=== PATIENT | female | born 1935 | race Two or more races ===

== ENCOUNTER 2024-08-30 22:33 | Inpatient (IN) | payer MEDICARE, OTHER ==
[~2024-08-30] VITALS: Ht 149.9 cm; Wt 69.3 kg
[2024-08-30] MEDS: cloNIDine HCL 0.1 MG TAB PO ONE (00:04)
[~2024-08-30 22:33] MED LIST: ALLO100T PO; AMLO1TAB23 PO; APIX2.5T PO; ATOR10TA52 PO; FURO20TA4 PO; LEVO-177 PO; METO-289 PO; POTA-228 PO
--- NOTE | 2024-08-30 22:56 | ED.PDOC ---
History of Present Illness HPI Comments 88-year-old female who came to ER via EMS were high blood pressure. Patient has history of hypertension, congestive heart failure and AFib. Patient has good compliance to her medications. States earlier today, she started having dizziness, lightheadedness, and headaches. Noted that her blood pressure was elevated, SBP 180-200, so she took clonidine which offered slight relief. She denies any nausea or vomiting. Denies any acute chest pains. Upon arrival blood pressure was 177/127 mm Hg Chief Complaint: High blood pressure Time Seen by MD: 22:56 Reviewed Notes: Nurses Notes Allergies: Coded Allergies: NO KNOWN ALLERGIES (Unverified , 08/30/24) Information Source: Patient Mode of Arrival: EMS Severity: Moderate Timing: Hours Duration: Since onset Prehospital treatment: Treatment Past Medical History PAST MEDICAL HISTORY: AFIB, CHF, HTN Surgical History: Denies all surgeries SALES TEACHER History: Denies all SALES TEACHER Hx Family History Family History: Reviewed,noncontributory to illness Social History Smoker: Non-Smoker Alcohol: Denies ETOH Use Drugs: Denies Drug Use Lives In: Home Constitutional: denies: chills, diaphoresis, fatigue, fever, malaise, sweats, weakness, others EENTM: denies: blurred vision, double vision, ear bleeding, ear discharge, ear drainage, ear pain, ear ringing, eye pain, eye redness, hearing loss, mouth pain, mouth swelling, nasal discharge, nose bleeding, nose congestion, nose pain, photophobia, tearing, throat pain, throat swelling, voice changes, others Respiratory: denies: cough, hemoptysis, orthopnea, SOB at rest, shortness of breath, SOB with excertion, stridor, wheezing, others Cardiovascular: denies: chest pain, dizzy spells, diaphoresis, Dyspnea on exertion, edema, irregular heart beat, left arm pain, lightheadedness, palpitations, PND, syncope, others Gastrointestinal: denies: abdomen distended, abdominal pain, blood streaked bowels, constipated, diarrhea, dysphagia, difficulty swallowing, hematemesis, melena, nausea, poor appetite, poor fluid intake, rectal bleeding, rectal pain, vomiting, others Genitourinary: denies: abnormal vagina bleeding, burning, dyspareunia, dysuria, flank pain, frequency, hematuria, incontinence, pain, , vagina discharge, urgency, others Neurological: reports: dizziness, headache; denies: fainting, left sided numbness, left sided weakness, numbness, paresthesia, pre-existing deficit, right sided numbness, right sided weakness, seizure, speech problems, tingling, tremors, weakness, others Musculoskeletal: denies: back pain, gout, joint pain, joint swelling, muscle pain, muscle stiffness, neck pain, others Integumetry: denies: bruises, change in color, change in hair/nails, dryness, laceration, lesions, lumps, rash, wounds, others Allergic/Immunocompromised: denies: Difficulty Healing, Frequent Infections, Hives, Itching, others Hematologic/Lymphatic: denies: anemia, blood clots, easy bleeding, easy bruising, swollen glands, others Endocrine: denies: excessive hunger, excessive sweating, excessive thirst, excessive urination, flushing, intolerance to cold, intolerance to heat, unexplained weight gain, unexplained weight loss, others Psychiatric: denies: anxiety, bipolar disorder, depression, hopeless, panic disorder, schizophrenia, sleepless, suicidal, others Physical Exam General Appearance: No Apparent Distress, Normal HEENT: Normal ENT Inspection, Pharynx Normal, TMs Normal Neck: Full Range of Motion, Non-Tender, Normal, Normal Inspection Respiratory: Chest Non-Tender, Lungs Clear, No Accessory Muscle Use, No Respiratory Distress, Normal Breath Sounds Cardiovascular: No Edema, No JVD, No Murmur, No Gallop, Normal Peripheral Pulses, Regular Rate/Rhythm Breast Exam: Deferred Gastrointestinal: No Organomegaly, Non Tender, No Pulsatile Mass, Normal Bowel Sounds, Soft Genitalia: Deferred Pelvic: Deferred Rectal: Deferred Extremities: No calf tenderness, Normal capillary refill, Normal inspection, Normal range of motion, Non-tender, No pedal edema Musculoskeletal : Apperance: Normal Neurologic: Alert, budget accountant II-XII nml as Tested, No Motor Deficits, Normal Affect, Normal Mood, No Sensory Deficits Cerebellar Function: Normal Reflexes: Normal Skin: Dry, Normal Color, Warm Lymphatic: No Adenopathy Was a procedure done? Was a procedure done?: No EKG EKG : Cardiac Rhythm: Afib Differential Dx Considerations may include: Hypertensive urgency, anxiety, electrolyte imbalance X-Ray, Labs, Meds, VS Vital Signs Date Time Temp Pulse Resp B/P (MAP) Pulse Ox O2 Delivery O2 Flow Rate FiO2 08/31/24 00:05 62 17 133/70 (91) 94 08/30/24 22:35 98.0 95 24 177/127 (144) 95 98.0 08/30/24 00:04 133/70 Lab Test 08/31/24 00:10 08/30/24 23:00 Range/Units Troponin I High Sensitivity Pending 84 *H </=34 ng/L White Blood Count 5.5 4.4-10.8 10^3/uL Red Blood Count 4.82 4.0-5.20 10^6/uL Hemoglobin 15.8 12.2-16.2 g/dL Hematocrit 47.4 H 36.0-46.0 % Mean Corpuscular Volume 98.5 80.0-100.0 fL Mean Corpuscular Hemoglobin 32.7 H 28.0-32.0 pg Mean Corpuscular Hemoglobin Concent 33.2 32.0-36.0 g/dL Red Cell Distribution Width 15.2 H 11.8-14.3 % Platelet Count 166 140-450 10^3/uL Mean Platelet Volume 8.0 6.9-10.8 fL Neutrophils (%) (Auto) 63.9 37.0-80.0 % Lymphocytes (%) (Auto) 24.5 10.0-50.0 % Monocytes (%) (Auto) 6.4 0.0-12.0 % Eosinophils (%) (Auto) 4.2 0.0-7.0 % Basophils (%) (Auto) 1.0 0.0-2.0 % Neutrophils # (Auto) 3.5 1.6-8.6 10 ^3/uL Lymphocytes # (Auto) 1.3 0.4-5.4 10 ^3/uL Monocytes # (Auto) 0.3 0-1.3 10 ^3/uL Eosinophils # (Auto) 0.2 0-0.8 10 ^3/uL Basophils # (Auto) 0.1 0-0.2 10 ^3/uL Nucleated Red Blood Cells 0.1 % Sodium Level 132 L 136-145 mmol/L Potassium Level 4.5 3.5-5.1 mmol/L Chloride Level 96 L 98-107 mmol/L Carbon Dioxide Level 30 20-31 mmol/L Anion Gap 6 5-15 Blood Urea Nitrogen 22 9-23 mg/dL Creatinine 1.43 H 0.550-1.02 mg/dL Glomerular Filtration Rate Calc 36 >90 mL/min BUN/Creatinine Ratio 15.4 10.0-20.0 Serum Glucose 121 H 74-106 mg/dL Calcium Level 10.4 8.7-10.4 mg/dL Total Bilirubin 1.6 H 0.2-1.0 mg/dL Aspartate Amino Transferase (AST) 113 H 13-40 U/L Alanine Aminotransferase (ALT) 112 H 7-40 U/L Alkaline Phosphatase 91 46-116 U/L Total Protein 6.6 5.7-8.2 g/dL Albumin 4.4 3.2-4.8 g/dL Time of 1ST Reevaluation: 22:45 Reevaluation 1ST: Unchanged Patient Education/Counseling: Diagnosis, Treatment Family Education/Counseling: No Family Present Departure 1 Departure Time of Disposition: 00:19 Impression: Primary Impression: Atrial fibrillation Additional Impression: Intermediate coronary syndrome Disposition: ADMITTED INPATIENT Admit to: [facility] Condition: Guarded Discharged With: Self Critical Care Note Critical Care Time?: Yes (35 min-critical care time only) Critical care comment: Total critical care time: Approximately 36 minutes Due to a high probability of clinically significant, life threatening deterioration, the patient required my highest level of preparedness to intervene emergently and I personally spent this critical care time directly and personally managing the patient. This critical care time included obtaining a history; examining the patient; pulse oximetry; ordering and review of studies; arranging urgent treatment with development of a management plan; evaluation of patient's response to treatment; frequent reassessment; and, discussions with other providers. This critical care time was performed to assess and manage the high probability of imminent, life-threatening deterioration that could result in multi-organ failure. It was exclusive of separately billable procedures and treating other patients. Stability Stability form required: No Heart Score Heart Score: Heart Score Response (Comments) Value History N/A 0 EKG N/A 0 Age N/A 0 Risk Factors N/A 0 Troponin N/A 0 Total 0 I personally scribed for SHALONDA RIOS MD ([email or web address]) on 08/30/24 at 22:56. Electronically submitted by Reginaldo Davidson ([facility]). SHALONDA RIOS MD Aug 30, 2024 22:56
[2024-08-30 23:00] VITALS: PULSE 73; RESP 13; O2SAT 98
[2024-08-30 23:19] LABS: Basophils # (auto) 0.1 10 ^3/uL (0-0.2); Eosinophils # (auto) 0.2 10 ^3/uL (0-0.8); Eosinophils % (auto) 4.2 % (0.0-7.0); Hematocrit 47.4 % (36.0-46.0); Hemoglobin 15.8 g/dL (12.2-16.2); Lymphocytes # (auto) 1.3 10 ^3/uL (0.4-5.4); Lymphocytes % (auto) 24.5 % (10.0-50.0); Mean Corpuscular Hemoglobin 32.7 pg (28.0-32.0); Mean Corpuscular Hgb Conc. 33.2 g/dL (32.0-36.0); Mean Corpuscular Volume 98.5 fL (80.0-100.0); Monocytes # (auto) 0.3 10 ^3/uL (0-1.3); Monocytes % (auto) 6.4 % (0.0-12.0); Neutrophils # (auto) 3.5 10 ^3/uL (1.6-8.6); Neutrophils % (auto) 63.9 % (37.0-80.0); Nucleated Red Blood Cells % 0.1 %; Platelet Count (auto) 166 10^3/uL (140-450); Red Blood Cells 4.82 10^6/uL (4.0-5.20); Red Cell Distribution Width 15.2 % (11.8-14.3); White Blood Cell 5.5 10^3/uL (4.4-10.8)
[2024-08-30 23:37] LABS: Alanine Aminotransferase 112 U/L (7-40); Albumin 4.4 g/dL (3.2-4.8); Alkaline Phosphatase 91 U/L (46-116); Anion Gap 6 (5-15); Aspartate Aminotransferase 113 U/L (13-40); BUN/Creatinine Ratio 15.4 (10.0-20.0); Blood Urea Nitrogen 22 mg/dL (9-23); Calcium 10.4 mg/dL (8.7-10.4); Carbon Dioxide 30 mmol/L (20-31); Chloride 96 mmol/L (98-107); Glucose 121 mg/dL (74-106); Potassium 4.5 mmol/L (3.5-5.1); Sodium 132 mmol/L (136-145); Total Protein 6.6 g/dL (5.7-8.2)
[2024-08-30 23:38] LABS: Bilirubin, Total 1.6 mg/dL (0.2-1.0)
[2024-08-31] VITALS (8 sets, daily range): BP systolic 109–128; BP diastolic 55–64; PULSE 65–70; RESP 17–19; TEMP 97.1–98.3; O2SAT 97–100
[2024-08-31] MEDS ORDERED: NITROGLYCERIN 0.4 MG SL TAB SL PRN (00:45)
[2024-08-31] MEDS ORDERED: ACETAMINOPHEN 325 MG TAB PO PRN (00:45)
[2024-08-31] MEDS ORDERED: MORPHINE SULFATE 4 MG/ML SYR/VIAL IV PRN (00:45)
[2024-08-31] MEDS ORDERED: ZOLPIDEM TARTRATE 5 MG TAB PO PRN (00:45)
[2024-08-31] MEDS ORDERED: ONDANSETRON HCL 4 MG/2 ML VIAL IV PRN (00:45)
--- NOTE | 2024-08-31 01:05 | DVHHP2 ---
History of Present Illness Reason for Visit: Hypertension History of Present Illness 88-year-old female with past medical history of hypertension AFib and congestive heart failure comes to the ED with complaints of dizziness elevated blood pressure patient does have a history of AFib on initial evaluation in the ED patient was stated to have a controlled rate was also noted to have elevated troponins as well as elevated BUN and creatinine patient was suggested for admission for further evaluation and management and inpatient setting Cardiovascular: AFIB, CAD, HTN Review of Systems Constitutional: Yes: Weakness; No: Fever, Chills, Sweats, Malaise, Other Eyes: No: Pain, Vision change, Conjunctivae inflammation, Eyelid inflammation, Other, Redness ENT: No: Ear pain, Ear discharge, Nose pain, Nose discharge, Nose congestion, Mouth pain, Mouth swelling, Throat pain, Throat swelling, Other Respiratory: No: Cough, Dry, Shortness of breath, SOB with excertion, Wheezing, Hemoptysis, Pleuritic Pain, Sputum, Wheezing, Other Cardiovascular: Palpitations; No: Chest Pain, Orthopnea, Paroxysmal Noc. Dyspnea, Edema, Lt Headedness, Other Gastrointestinal: No: Nausea, Vomiting, Abdominal Pain, Diarrhea, Constipation, Melena, Hematochezia, Other Genitourinary: No Dysuria, No Frequency, No Incontinence, No Hematuria, No Retention, No Other Musculoskeletal: No: other, neck pain, shoulder pain, arm pain, back pain, hand pain, leg pain, foot pain Skin: No: Rash, Lesions, Jaundice, Bruising, Other Neurological: Weakness; No: Numbness, Incoordination, Change in speech, Confusion, Seizures, Other Allergies: Coded Allergies: NO KNOWN ALLERGIES (Unverified , 08/30/24) Medications Current Medications Medications Dose Ordered Sig/Consuelo Route Start Time Stop Time Status Last Admin Dose Admin Clonidine HCl 0.1 mg TID PO 08/31/24 06:00 Aspirin 81 mg DAILY PO 08/31/24 10:00 Atorvastatin Calcium 40 mg HS PO 08/31/24 22:00 Carvedilol 6.25 mg Q12HR PO 08/31/24 10:00 Losartan Potassium 12.5 mg DAILY PO 08/31/24 10:00 Morphine Sulfate 2 mg Q30MP PRN IV 08/31/24 00:45 Acetaminophen 650 mg Q6HP PRN PO 08/31/24 00:45 Zolpidem Tartrate 5 mg QHSP PRN PO 08/31/24 00:45 Docusate Sodium 100 mg DAILY PO 08/31/24 10:00 Enoxaparin Sodium 60 mg Q24H SC 08/31/24 10:00 Nitroglycerin 0.4 mg Q5MINP PRN SL 08/31/24 00:45 Ondansetron HCl 4 mg Q4HP PRN IV 08/31/24 00:45 Exam Vital Signs Vital Signs Date Time Temp Pulse Resp B/P (MAP) Pulse Ox O2 Delivery O2 Flow Rate FiO2 08/31/24 00:05 62 17 133/70 (91) 94 08/30/24 22:35 98.0 98.0 Exam General Appearance: Moderate Distress and weakness Normal HEENT: Normal ENT Inspection, Pharynx Normal, TMs Normal Neck: Full Range of Motion, Non-Tender, Normal, Normal Inspection Respiratory: Clear to auscultation bilaterally Cardiovascular: No Edema, No JVD, No Murmur, No Gallop, Normal Peripheral Pulses, Regular Rate/Rhythm Breast Exam: Deferred Gastrointestinal: No Organomegaly, Non Tender, No Pulsatile Mass, Normal Bowel Sounds, Soft Genitalia: Deferred Pelvic: Deferred Rectal: Deferred Extremities: No calf tenderness, Normal capillary refill, Normal inspection, Normal range of motion, Non-tender, No pedal edema Neurologic: Alert, No Motor Deficits, Normal Affect, Normal Mood, No Sensory Deficits Cerebellar Function: Normal Reflexes: Normal Skin: Dry, Normal Color, Warm Lymphatic: No Adenopathy Labs/Xrays Labs Test 08/31/24 00:10 08/30/24 23:00 Range/Units Troponin I High Sensitivity 83 *H </=34 ng/L White Blood Count 5.5 4.4-10.8 10^3/uL Red Blood Count 4.82 4.0-5.20 10^6/uL Hemoglobin 15.8 12.2-16.2 g/dL Hematocrit 47.4 H 36.0-46.0 % Mean Corpuscular Volume 98.5 80.0-100.0 fL Mean Corpuscular Hemoglobin 32.7 H 28.0-32.0 pg Mean Corpuscular Hemoglobin Concent 33.2 32.0-36.0 g/dL Red Cell Distribution Width 15.2 H 11.8-14.3 % Platelet Count 166 140-450 10^3/uL Mean Platelet Volume 8.0 6.9-10.8 fL Neutrophils (%) (Auto) 63.9 37.0-80.0 % Lymphocytes (%) (Auto) 24.5 10.0-50.0 % Monocytes (%) (Auto) 6.4 0.0-12.0 % Eosinophils (%) (Auto) 4.2 0.0-7.0 % Basophils (%) (Auto) 1.0 0.0-2.0 % Neutrophils # (Auto) 3.5 1.6-8.6 10 ^3/uL Lymphocytes # (Auto) 1.3 0.4-5.4 10 ^3/uL Monocytes # (Auto) 0.3 0-1.3 10 ^3/uL Eosinophils # (Auto) 0.2 0-0.8 10 ^3/uL Basophils # (Auto) 0.1 0-0.2 10 ^3/uL Nucleated Red Blood Cells 0.1 % Sodium Level 132 L 136-145 mmol/L Potassium Level 4.5 3.5-5.1 mmol/L Chloride Level 96 L 98-107 mmol/L Carbon Dioxide Level 30 20-31 mmol/L Anion Gap 6 5-15 Blood Urea Nitrogen 22 9-23 mg/dL Creatinine 1.43 H 0.550-1.02 mg/dL Glomerular Filtration Rate Calc 36 >90 mL/min BUN/Creatinine Ratio 15.4 10.0-20.0 Serum Glucose 121 H 74-106 mg/dL Calcium Level 10.4 8.7-10.4 mg/dL Total Bilirubin 1.6 H 0.2-1.0 mg/dL Aspartate Amino Transferase (AST) 113 H 13-40 U/L Alanine Aminotransferase (ALT) 112 H 7-40 U/L Alkaline Phosphatase 91 46-116 U/L Total Protein 6.6 5.7-8.2 g/dL Albumin 4.4 3.2-4.8 g/dL Assessment/Plan Assessment/Plan Admit to telemetry 1. Non-ST Elevation Myocardial Infarction (NSTEMI) - Elevated troponin of 84 Follow with chest pain protocol - Further cardiac workup as inpatient 2. Atrial Fibrillation - Currently rate-controlled - Continue home medications - Cardiology to evaluate anticoagulation status 3. Hypertension - Improved during ED stay without intervention - Continue home medications - Monitor as inpatient 4. Acute Kidney Injury - Mild elevation in creatinine - Monitor renal function - Adjust medications as needed Billing Information: ICD-10: I21.4 - Non-ST elevation myocardial infarction ICD-10: I48.91 - Unspecified atrial fibrillation ICD-10: R42 - Dizziness ICD-10: I10 - Essential hypertension ICD-10: N17.9 - Acute kidney injury, unspecified Plan discussed with: Patient My Orders Orders - DULCE CARLTON MD Procedure Category Date Status Time Clonidine Hcl Tablet PHA 08/31/24 In Process (Catapres Tablet) 06:00 Admit ADMIT 08/31/24 Transmitted 00:41 Code Status CODE 08/31/24 Transmitted 00:41 Cardiac DIET 08/31/24 Transmitted Diet-2gna,Lofat,Lochol Breakfast Aspirin Tablet PHA 08/31/24 In Process 10:00 Atorvastatin (Lipitor) PHA 08/31/24 In Process 22:00 Carvedilol Tablet PHA 08/31/24 In Process (Coreg Tablet) 10:00 Losartan Tablet PHA 08/31/24 In Process (Cozaar Tablet) 10:00 Morphine Sulfate PHA 08/31/24 In Process Injection 00:45 Acetaminophen Tablet PHA 08/31/24 In Process (Tylenol Tablet) 00:45 Zolpidem Tartrate PHA 08/31/24 In Process (Ambien) 00:45 Docusate Sodium PHA 08/31/24 In Process Capsule (Colace 10:00 Complete Blood Count LAB 08/31/24 Logged 04:00 Enoxaparin Sodium PHA 08/31/24 In Process (Lovenox) 10:00 Nitroglycerin PHA 08/31/24 In Process Sublingual (Ntrostat 00:45 Ondansetron Hcl PHA 08/31/24 In Process (Zofran) 00:45 Basic Metabolic Panel LAB 08/31/24 Logged 00:41 Electrocardigram EKG 08/31/24 Logged 00:41 Troponin-I Hs LAB 08/31/24 Logged 04:00 Cardiac CLAUDIA 08/31/24 In Process Rehabilitation - Outpa Stat Ekg For Chest CLAUDIA 08/31/24 In Process Pain 00:41 Notify Md Of Changes CLAUDIA 08/31/24 In Process From Base 00:41 Temper Mill Operator For CLAUDIA 08/31/24 In Process 24 Hours 00:41 Oxygen By Nasal RT 08/31/24 Transmitted Cannula 00:41 Rhythm Strips Once CLAUDIA 08/31/24 In Process Every Shift 00:41 * Cardiology Consult CONS 08/31/24 Transmitted 00:41 Date of Service: Aug 31, 2024 Billing Provider: DULCE CARLTON MD Common Visit Codes: [id number] INP/OBS CARE (HIGH) DULCE CARLTON MD Aug 31, 2024 01:05
[2024-08-31] MEDS: MAALOX PLUS or MAALOX 30 ML PO ONE (01:07)
[2024-08-31] MEDS: ASPirin 81 mg TAB PO ONE (01:07)
[2024-08-31] MEDS: cloNIDine HCL 0.1 MG TAB PO SCH (05:50)
--- NOTE | 2024-08-31 06:18 | ECG ---
[facility] Test Date: 2024-08-30 Test Time: 22:41:57 Pat Name: MINI SALINAS Department: ED Room: 0245T B Gender: F Bottle Caser: : 1935 Requested By: SHALONDA RIOS Order Number: [id number] Reading MD: Greyson Claire Measurements Intervals Sylvester Rate: 69 P: 0 MT: 0 QRS: -30 QRSD: 115 T: 201 QT: 416 QTc: 446 Interpretive Statements Atrial flutter Nonspecific intraventricular conduction delay Probable anteroseptal infarct, old Borderline repolarization abnormality Electronically Signed On 08-31-2024 20:36:42 PDT by Greyson Claire Please click the below link to view image of tracing.
[2024-08-31] MEDS: CARVEDILOL 3.125 MG TAB PO SCH (10:00)
[2024-08-31] MEDS: LOSARTAN POTASSIUM 25 MG TAB PO SCH (10:00)
[2024-08-31] MEDS: DOCUSATE SOD 100 MG CAP PO SCH (10:50)
[2024-08-31] MEDS: ASPirin 81 mg TAB PO SCH (10:50)
[2024-08-31] MEDS: ENOXAPARIN SOD 60 MG/0.6 ML SYRINGE SC SCH (10:50)
[2024-08-31 11:13] LABS: Chloride 98 mmol/L (98-107); Potassium 4.4 mmol/L (3.5-5.1)
[2024-08-31 11:14] LABS: Anion Gap 5 (5-15); Carbon Dioxide 30 mmol/L (20-31)
[2024-08-31 11:15] LABS: Calcium 10.1 mg/dL (8.7-10.4)
[2024-08-31 11:16] LABS: Basophils # (auto) 0.1 10 ^3/uL (0-0.2); Eosinophils # (auto) 0.2 10 ^3/uL (0-0.8); Eosinophils % (auto) 3.1 % (0.0-7.0); Hematocrit 46.4 % (36.0-46.0); Hemoglobin 15.5 g/dL (12.2-16.2); Lymphocytes # (auto) 1.1 10 ^3/uL (0.4-5.4); Lymphocytes % (auto) 16.5 % (10.0-50.0); Mean Corpuscular Hemoglobin 33.2 pg (28.0-32.0); Mean Corpuscular Hgb Conc. 33.4 g/dL (32.0-36.0); Mean Corpuscular Volume 99.3 fL (80.0-100.0); Monocytes # (auto) 0.4 10 ^3/uL (0-1.3); Monocytes % (auto) 5.5 % (0.0-12.0); Neutrophils # (auto) 5.1 10 ^3/uL (1.6-8.6); Neutrophils % (auto) 73.9 % (37.0-80.0); Nucleated Red Blood Cells % 0.1 %; Platelet Count (auto) 165 10^3/uL (140-450); Red Blood Cells 4.68 10^6/uL (4.0-5.20); Sodium 133 mmol/L (136-145); White Blood Cell 6.9 10^3/uL (4.4-10.8)
[2024-08-31 11:19] LABS: Glucose 88 mg/dL (74-106)
[2024-08-31 11:20] LABS: BUN/Creatinine Ratio 14.2 (10.0-20.0); Blood Urea Nitrogen 19 mg/dL (9-23)
--- NOTE | 2024-08-31 11:41 | DVHINCON2 ---
Date Seen: Aug 31, 2024 Referring Physician MD Lois Reason for Consultation NSTEMI History of Present Illness This is an 88-year-old female patient who presents to the emergency room with chief complaint of dizziness. The patient reports that she has been checking her blood pressure at home for the last few days and noticed that he has been slightly elevated with a systolic reading in the 150s. On the day of emergency room arrival, the patient reports that she was not feeling well and began to have dizziness. She also mentions some chest palpitations. She came to the emergency room for further evaluation. Initial twelve lead electrocardiogram reveals atrial flutter. Initial troponin level of 84ng/L with flat trend thereafter. Significant past medical history includes congestive heart failure, atrial fibrillation (on Eliquis), hypertension, hyperlipidemia, and thyroid disease. The patient reports that she sees lead front desk agent in the outpatient setting. Past Medical History Past medical history reviewed. No other significant than mentioned above. Past Surgical History Left hip replacement Family History Family history reviewed. Social History Denies the use of tobacco, alcohol or illicit drugs. Allergies: Coded Allergies: NO KNOWN ALLERGIES (Unverified , 08/30/24) Home Meds Home medications reviewed. Current Medications Current Medications Medications (Trade) Dose Ordered Sig/Consuelo Route PRN Reason Start Time Stop Time Status Last Admin Clonidine HCl (Catapres Tablet) 0.1 mg TID PO 08/31/24 06:00 08/31/24 05:50 Aspirin 81 mg DAILY PO 08/31/24 10:00 08/31/24 10:50 Atorvastatin Calcium (Lipitor) 40 mg HS PO 08/31/24 22:00 Carvedilol (Coreg Tablet) 6.25 mg Q12HR PO 08/31/24 10:00 Losartan Potassium (Cozaar Tablet) 12.5 mg DAILY PO 08/31/24 10:00 Morphine Sulfate 2 mg Q30MP PRN IV FOR CHEST PAIN 08/31/24 00:45 Acetaminophen (Tylenol Tablet) 650 mg Q6HP PRN PO MILD PAIN (1-3 PAIN SCALE) 08/31/24 00:45 Zolpidem Tartrate (Ambien) 5 mg QHSP PRN PO FOR INSOMNIA 08/31/24 00:45 Docusate Sodium (Colace Capsule) 100 mg DAILY PO 08/31/24 10:00 08/31/24 10:50 Enoxaparin Sodium (Lovenox) 60 mg Q24H SC 08/31/24 10:00 08/31/24 10:50 Nitroglycerin (Ntrostat Sublingual) 0.4 mg Q5MINP PRN SL FOR CHEST PAIN 08/31/24 00:45 Ondansetron HCl (Zofran) 4 mg Q4HP PRN IV NAUSEA / VOMITING 08/31/24 00:45 Review of Systems Constitutional: No symptom reported Ears, Nose, & Throat: No symptom reported Eyes: No symptom reported Neurological: Dizziness Pulmonary/Respiratory: No symptoms reported Cardiovascular: No symptom reported Gastrointestinal: No symptom reported Genitourinary: No symptom reported Musculoskeletal: No symptom reported Skin: No symptom reported Psychiatric: No symptom reported Endocrine: No symptom reported Hematologic/Lymphatic: No symptom reported Vital Signs Vital Signs Date Time Temp Pulse Resp B/P (MAP) Pulse Ox O2 Delivery O2 Flow Rate FiO2 08/31/24 10:00 104/53 08/31/24 10:00 66 08/31/24 09:00 98.3 18 99 98.3 08/31/24 03:01 Nasal Cannula* 2 28 Physical Exam General Appearance: Cooperative. Well-developed. Well-nourished. No acute distress. Pulmonary/Respiratory: Clear, bilateral breaths sounds. Cardiovascular/Chest: Regular rate and rhythm. Peripheral Pulses: 2+ Radial (R). 2+ Radial (L). 2+ Pedal (R). 2+ Pedal (L) Abdominal Exam: Normal bowel sounds. Ankle Exam: Negative ankle edema Lower extremities: Negative lower extremity edema Neuro/Mental Status: A/OX4, coherent. Thoughts/Psych: Normal thought pattern. Appropriate mood and affect. Good judgment and insight. Appearance: No acute distress. Skin Exam: Normal inspection. Normal color. Warm and dry. Labs/Diagnostic Data Labs Test 08/31/24 10:30 08/30/24 23:00 Range/Units White Blood Count 6.9 # 4.4-10.8 10^3/uL Red Blood Count 4.68 4.0-5.20 10^6/uL Hemoglobin 15.5 12.2-16.2 g/dL Hematocrit 46.4 H 36.0-46.0 % Mean Corpuscular Volume 99.3 80.0-100.0 fL Mean Corpuscular Hemoglobin 33.2 H 28.0-32.0 pg Mean Corpuscular Hemoglobin Concent 33.4 32.0-36.0 g/dL Red Cell Distribution Width 15.0 H 11.8-14.3 % Platelet Count 165 140-450 10^3/uL Mean Platelet Volume 8.0 6.9-10.8 fL Neutrophils (%) (Auto) 73.9 37.0-80.0 % Lymphocytes (%) (Auto) 16.5 10.0-50.0 % Monocytes (%) (Auto) 5.5 0.0-12.0 % Eosinophils (%) (Auto) 3.1 0.0-7.0 % Basophils (%) (Auto) 1.0 0.0-2.0 % Neutrophils # (Auto) 5.1 1.6-8.6 10 ^3/uL Lymphocytes # (Auto) 1.1 0.4-5.4 10 ^3/uL Monocytes # (Auto) 0.4 0-1.3 10 ^3/uL Eosinophils # (Auto) 0.2 0-0.8 10 ^3/uL Basophils # (Auto) 0.1 0-0.2 10 ^3/uL Nucleated Red Blood Cells 0.1 % Sodium Level 133 L 136-145 mmol/L Potassium Level 4.4 3.5-5.1 mmol/L Chloride Level 98 98-107 mmol/L Carbon Dioxide Level 30 20-31 mmol/L Anion Gap 5 5-15 Blood Urea Nitrogen 19 9-23 mg/dL Creatinine 1.34 H 0.550-1.02 mg/dL Glomerular Filtration Rate Calc 39 >90 mL/min BUN/Creatinine Ratio 14.2 10.0-20.0 Serum Glucose 88 74-106 mg/dL Calcium Level 10.1 8.7-10.4 mg/dL Troponin I High Sensitivity 102 *H </=34 ng/L Total Bilirubin 1.6 H 0.2-1.0 mg/dL Aspartate Amino Transferase (AST) 113 H 13-40 U/L Alanine Aminotransferase (ALT) 112 H 7-40 U/L Alkaline Phosphatase 91 46-116 U/L Total Protein 6.6 5.7-8.2 g/dL Albumin 4.4 3.2-4.8 g/dL Assessment Sick sinus syndrome Symptomatic bradycardia NSTEMI Atrial flutter History of atrial fibrillation (on Eliquis) Chronic HFpEF, NYHA class III Severe mitral valve regurgitation Hypertension Dyslipidemia Thyroid disease Acute kidney injury Plan/Recommendation We will continue with the following plan/recommendations (): Patient seen and examined at bedside with . Transthoracic echocardiogram reveals EF 55%. The patient remains in atrial flutter at time of assessment. After reviewing panel monitor, the patient has episodes of bradycardia dropping as low as 34 beats per minute while in atrial flutter. Patient also came in for chief complaint of dizziness. Patient most likely having symptomatic bradycardia related to sick sinus syndrome. At this time, the [place] ent was offered a permanent pacemaker implantation. Procedure was discussed in full detail with the patient. Patient understands and is agreeable to undergo the procedure. Tentatively, the patient may be scheduled for 09/02/2024. [id number] VASc score: 5 points. HAS-BLED score: 2 points. At this time we will hold NOAC and anticoagulation in preparation for permanent pacemaker imp lantation. Initiate SCDs on patient in the meantime. Hold AV pamela blocking agents. Patient has controlled rate on panel monitor. Continuous close cardiac surveillance. Closely monitor ECG and notify cardiology team for any changes. Thank you for allowing us to care for this patient. Please call with any questions or concerns. Critical care time spent: 44 minutes This medical document was created using an electronic medical record system with voice recognition software and computerized dictation system. Although this document has been carefully reviewed, there might still be some phonetic and typographical errors. Occasional wrong-word or ``sound-alike substitutions may have occurred due to the inherent limitations of voice recognition software. These areas are purely typographical due to imperfections of the software programs and do not reflect any compromise in the patient's medical care. Please read the chart carefully and recognize, using context, where these substitutions have occurred.scd Plan discussed with: Patient NYHA Physical activity limitations: NA Date of Service: Aug 31, 2024 Billing Provider: CLARIBEL MTZ Cardiology Common Codes: 49109-[id number] INP/OBS CARE (High) Cardiology Consultation Codes: [id number] CONSULT <45MIN CLARIBEL MTZ Aug 31, 2024 11:41
--- NOTE | 2024-08-31 14:34 | DVHPN2 ---
Reviewed: Care Plan, H&P, Labs, Medications, Previous Orders, Radiology Changes from previous H/P or p: No Changes Eyes: No Pain, No Vision change, No Conjunctivae inflammation, No Eyelid inflammation, No Other, No Redness ENT: No Ear pain, No Ear discharge, No Nose pain, No Nose discharge, No Nose congestion, No Mouth pain, No Mouth swelling, No Throat pain, No Throat swelling, No Other Cardiovascular: No Chest Pain; Palpitations; No Orthopnea, No Paroxysmal Noc. Dyspnea, No Edema, No Lt Headedness, No Other Respiratory: No Cough, No Dry, No Shortness of breath, No SOB with excertion, No Wheezing, No Hemoptysis, No Pleuritic Pain, No Sputum, No Other Gastrointestinal: No Nausea, No Vomiting, No Abdominal Pain, No Diarrhea, No Constipation, No Melena, No Hematochezia, No Other Genitourinary: No Dysuria, No Frequency, No Incontinence, No Hematuria, No Retention, No Other Musculoskeletal: No other, No neck pain, No shoulder pain, No arm pain, No back pain, No hand pain, No leg pain, No foot pain Skin: No Rash, No Lesions, No Jaundice, No Bruising, No Other Objective Vitals Vital Signs Date Time Temp Pulse Resp B/P (MAP) Pulse Ox O2 Delivery O2 Flow Rate FiO2 08/31/24 13:00 97.4 70 18 114/58 (76) 100 97.4 08/31/24 03:01 Nasal Cannula* 2 28 Intake/Output Intake and Output 08/31/24 07:00 Intake Total 0 ml Balance 0 ml Intake Oral 0 ml # Voids 4 Medications Current Medications Medications Dose Ordered Sig/Consuelo Route Start Time Stop Time Status Last Admin Dose Admin Clonidine HCl 0.1 mg TID PO 08/31/24 06:00 08/31/24 05:50 0.1 MG Aspirin 81 mg DAILY PO 08/31/24 10:00 08/31/24 10:50 81 MG Atorvastatin Calcium 40 mg HS PO 08/31/24 22:00 Carvedilol 6.25 mg Q12HR PO 08/31/24 10:00 Losartan Potassium 12.5 mg DAILY PO 08/31/24 10:00 Morphine Sulfate 2 mg Q30MP PRN IV 08/31/24 00:45 Acetaminophen 650 mg Q6HP PRN PO 08/31/24 00:45 Zolpidem Tartrate 5 mg QHSP PRN PO 08/31/24 00:45 Docusate Sodium 100 mg DAILY PO 08/31/24 10:00 08/31/24 10:50 100 MG Enoxaparin Sodium 60 mg Q24H SC 08/31/24 10:00 08/31/24 10:50 60 MG Nitroglycerin 0.4 mg Q5MINP PRN SL 08/31/24 00:45 Ondansetron HCl 4 mg Q4HP PRN IV 08/31/24 00:45 Laboratory Results Laboratory Tests 08/31/24 10:30 Chemistry Test 08/30/24 23:00 08/31/24 10:30 Albumin 4.4 g/dL (3.2-4.8) Calcium Level 10.4 mg/dL (8.7-10.4) 10.1 mg/dL (8.7-10.4) Total Protein 6.6 g/dL (5.7-8.2) LFT Test 08/30/24 23:00 Alanine Aminotransferase (ALT) 112 U/L (7-40) H Alkaline Phosphatase 91 U/L (46-116) Aspartate Amino Transferase (AST) 113 U/L (13-40) H Total Bilirubin 1.6 mg/dL (0.2-1.0) H Labs and/or images reviewed: Labs reviewed by me, Image(s) reviewed by me Assessment/Plan Assessment/Plan AFib with a RVR: Cardiology consult by Dr. Carbone appreciated History of AFib Coronary artery disease Hypertension CHF Non ST-elevation [place] MATTEO Time spent 65 minutes Condition guarded Patient is full code Advanced care planning time 20 minutes Plan discussed with: Patient Date of Service: Aug 31, 2024 Billing Provider: MANFRED ARTEAGA MD Common Visit Codes: [id number] CARE 30-74 MIN MANFRED ARTEAGA MD Aug 31, 2024 14:34
--- NOTE | 2024-08-31 14:51 | DVHSR ---
APPROVED REPORT EXAM: Two-dimensional and M-mode echocardiogram with Doppler and color Doppler. Blood Pressure: 124/59 mmHg INDICATION Evaluate cardiac function RISK FACTORS Height: 4'11", Weight: 151 DIMENSIONS LVDd3.2 (3.8-5.7cm)LA (2D)4.3 (1.9-4.0cm)Aortic Root2.9 (2.0-3.7cm) LVDs2.2 (2.5-4.0cm)LA (MM) (1.9-4.0cm)Aortic Cusp Exc1.2 (1.5-2.0cm) EF (%) 55.0 (55-70%)Rt. Atrium4.3 (1.9-4.0cm)Asc. Aorta cm IVSd1.1 (0.7-1.1cm)RV (D)3.4 (1.8-2.4cm) PWd1.1 (0.7-1.1cm) Mitral Valve MitralMitral Stenosis E wave0.96m/sMV Mean GR.mmHg E/A ratio0.02D MVAcm2 Aortic Valve Aortic ValveAortic Stenosis V10.60m/Thomas Mean GR.1mmHg V20.87m/Thomas Peak GR.3mmHg LVOT Diameter1.7 (1.8-2.4cm)Doppler AVA1.56cm2 AI P 1/2 Jabw464.34ms Pulmonic Valve V20.59m/s Tricuspid Valve TR Velocity2.46m/s [id number] Other Information Technically limited study due to body habitus. 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
[2024-08-31] MEDS: ATORVASTATIN 20 MG TAB PO SCH (22:16)
--- NOTE | 2024-08-31 23:00 | DVHINCON2 ---
Date Seen: Aug 31, 2024 Referring Physician MD Lois Reason for Consultation NSTEMI History of Present Illness This is an 88-year-old female with a PMH of hypertension, Atrial fibrillation and Congestive heart failure who presents to the emergency room with a complaint of dizziness. The patient reports that she has been checking her blood pressure at home for the last few days and noticed that he has been slightly elevated with a systolic stranding in the 150s. On the day of emergency room arrival, the patient reports that she was not feeling well and began to have dizziness. She also mentions some heart palpitations. Initial twelve lead electrocardiogram reveals atrial flutter. The patient reports that she sees acute care nurse in the outpatient setting. Troponin 84 > 83 > 102. Patient was admitted to the hospital. I am asked to consult on this patient. Past Medical History Past medical history reviewed. No other significant than mentioned above. Past Surgical History Left hip replacement Allergies: Coded Allergies: NO KNOWN ALLERGIES (Unverified , 08/30/24) Current Medications Current Medications Medications (Trade) Dose Ordered Sig/Consuelo Route PRN Reason Start Time Stop Time Status Last Admin Clonidine HCl (Catapres Tablet) 0.1 mg TID PO 08/31/24 06:00 08/31/24 05:50 Aspirin 81 mg DAILY PO 08/31/24 10:00 08/31/24 10:50 Atorvastatin Calcium (Lipitor) 40 mg HS PO 08/31/24 22:00 Carvedilol (Coreg Tablet) 6.25 mg Q12HR PO 08/31/24 10:00 Losartan Potassium (Cozaar Tablet) 12.5 mg DAILY PO 08/31/24 10:00 Morphine Sulfate 2 mg Q30MP PRN IV FOR CHEST PAIN 08/31/24 00:45 Acetaminophen (Tylenol Tablet) 650 mg Q6HP PRN PO MILD PAIN (1-3 PAIN SCALE) 08/31/24 00:45 Zolpidem Tartrate (Ambien) 5 mg QHSP PRN PO FOR INSOMNIA 08/31/24 00:45 Docusate Sodium (Colace Capsule) 100 mg DAILY PO 08/31/24 10:00 08/31/24 10:50 Enoxaparin Sodium (Lovenox) 60 mg Q24H SC 08/31/24 10:00 08/31/24 10:50 Nitroglycerin (Ntrostat Sublingual) 0.4 mg Q5MINP PRN SL FOR CHEST PAIN 08/31/24 00:45 Ondansetron HCl (Zofran) 4 mg Q4HP PRN IV NAUSEA / VOMITING 08/31/24 00:45 Review of Systems Constitutional: No symptom reported Ears, Nose, & Throat: No symptom reported Eyes: No symptom reported Neurological: No symptoms reported Pulmonary/Respiratory: Shortness of breath Cardiovascular: Chest pain Gastrointestinal: No symptom reported Genitourinary: No symptom reported Musculoskeletal: No symptom reported Skin: No symptom reported Psychiatric: No symptom reported Endocrine: No symptom reported Hematologic/Lymphatic: No symptom reported Vital Signs Vital Signs Date Time Temp Pulse Resp B/P (MAP) Pulse Ox O2 Delivery O2 Flow Rate FiO2 08/31/24 13:00 97.4 70 18 114/58 (76) 100 97.4 08/31/24 03:01 Nasal Cannula* 2 28 Physical Exam GENERAL: Alert and oriented x 3. No acute distress. EYES: PERRL, EOMI. Anicteric. HENT: Moist mucous membranes. LUNGS: Clear to auscultation bilaterally. CARDIOVASCULAR: Regular rate and rhythm. ABDOMEN: Soft, nontender and nondistended. EXTREMITIES: No edema. NEUROLOGIC: No focal neurological deficits. SKIN: Warm, dry. Labs/Diagnostic Data Labs Test 08/31/24 10:30 08/30/24 23:00 Range/Units White Blood Count 6.9 # 4.4-10.8 10^3/uL Red Blood Count 4.68 4.0-5.20 10^6/uL Hemoglobin 15.5 12.2-16.2 g/dL Hematocrit 46.4 H 36.0-46.0 % Mean Corpuscular Volume 99.3 80.0-100.0 fL Mean Corpuscular Hemoglobin 33.2 H 28.0-32.0 pg Mean Corpuscular Hemoglobin Concent 33.4 32.0-36.0 g/dL Red Cell Distribution Width 15.0 H 11.8-14.3 % Platelet Count 165 140-450 10^3/uL Mean Platelet Volume 8.0 6.9-10.8 fL Neutrophils (%) (Auto) 73.9 37.0-80.0 % Lymphocytes (%) (Auto) 16.5 10.0-50.0 % Monocytes (%) (Auto) 5.5 0.0-12.0 % Eosinophils (%) (Auto) 3.1 0.0-7.0 % Basophils (%) (Auto) 1.0 0.0-2.0 % Neutrophils # (Auto) 5.1 1.6-8.6 10 ^3/uL Lymphocytes # (Auto) 1.1 0.4-5.4 10 ^3/uL Monocytes # (Auto) 0.4 0-1.3 10 ^3/uL Eosinophils # (Auto) 0.2 0-0.8 10 ^3/uL Basophils # (Auto) 0.1 0-0.2 10 ^3/uL Nucleated Red Blood Cells 0.1 % Sodium Level 133 L 136-145 mmol/L Potassium Level 4.4 3.5-5.1 mmol/L Chloride Level 98 98-107 mmol/L Carbon Dioxide Level 30 20-31 mmol/L Anion Gap 5 5-15 Blood Urea Nitrogen 19 9-23 mg/dL Creatinine 1.34 H 0.550-1.02 mg/dL Glomerular Filtration Rate Calc 39 >90 mL/min BUN/Creatinine Ratio 14.2 10.0-20.0 Serum Glucose 88 74-106 mg/dL Calcium Level 10.1 8.7-10.4 mg/dL Troponin I High Sensitivity 102 *H </=34 ng/L Total Bilirubin 1.6 H 0.2-1.0 mg/dL Aspartate Amino Transferase (AST) 113 H 13-40 U/L Alanine Aminotransferase (ALT) 112 H 7-40 U/L Alkaline Phosphatase 91 46-116 U/L Total Protein 6.6 5.7-8.2 g/dL Albumin 4.4 3.2-4.8 g/dL Assessment Sick sinus syndrome. Symptomatic bradycardia. NSTEMI. Atrial flutter. History of atrial fibrillation (on Eliquis). Chronic HFpEF, NYHA class III. Severe mitral valve regurgitation. Hypertension. Dyslipidemia. Thyroid disease. Acute kidney injury. Plan/Recommendation I agree with your ongoing assessment and care of plan. Patient has been seen by Ivette Barker NP on my behalf, her and I discussed the plan with the patient. Transthoracic echocardiogram reveals EF 55%. The patient remains in atrial flutter at time of assessment. A fter reviewing surveillance system monitor, the patient has episodes of bradycardia dropping as low as 34 beats per minute while in atrial flutter. Patient also came in for chief complaint of dizziness. P atient most likely having symptomatic bradycardia related to sick sinus syndrome. At this time, the patient was offered a permanent pacemaker implantation. Procedure was discussed in full detail with the patient. Patient understands and is agreeable to undergo the procedure. Tentatively, the patient may be scheduled for 09/02/2024. [id number] VASc score: 5 points. HAS-BLED score: 2 points. At this time we will hold NOAC and anticoagulation in preparation for permanent pacemaker implantation. Initiate SCDs on patient in the meantime. Hold AV pamela blocking agents. Patient has controlled rate on surveillance system monitor. Continuous close cardiac surveillance. Closely monitor ECG and notify cardiology team for any changes. Additional plan as per the hospital course. Plan discussed with: Patient NYHA Physical activity limitations: NA Date of Service: Aug 31, 2024 Billing Provider: ABDULAZIZ LOWRY MD Cardiology Common Codes: [id number] INP/OBS CARE (High) Cardiology Consultation Codes: [id number] CONSULT <45MIN ABDULAZIZ LOWRY MD Aug 31, 2024 15:19
[2024-09-01] VITALS (8 sets, daily range): BP systolic 111–145; BP diastolic 59–84; PULSE 60–97; RESP 17–20; TEMP 97.2–98.1; O2SAT 94–100
--- NOTE | 2024-09-01 11:17 | DVHPN2 ---
Reviewed: Care Plan, H&P, Labs, Medications, Previous Orders, Radiology Changes from previous H/P or p: No Changes Eyes: No Pain, No Vision change, No Conjunctivae inflammation, No Eyelid inflammation, No Other, No Redness ENT: No Ear pain, No Ear discharge, No Nose pain, No Nose discharge, No Nose congestion, No Mouth pain, No Mouth swelling, No Throat pain, No Throat swelling, No Other Cardiovascular: No Chest Pain; Palpitations; No Orthopnea, No Paroxysmal Noc. Dyspnea, No Edema, No Lt Headedness, No Other Respiratory: No Cough, No Dry, No Shortness of breath, No SOB with excertion, No Wheezing, No Hemoptysis, No Pleuritic Pain, No Sputum, No Other Gastrointestinal: No Nausea, No Vomiting, No Abdominal Pain, No Diarrhea, No Constipation, No Melena, No Hematochezia, No Other Genitourinary: No Dysuria, No Frequency, No Incontinence, No Hematuria, No Retention, No Other Musculoskeletal: No other, No neck pain, No shoulder pain, No arm pain, No back pain, No hand pain, No leg pain, No foot pain Skin: No Rash, No Lesions, No Jaundice, No Bruising, No Other Objective Vitals Vital Signs Date Time Temp Pulse Resp B/P (MAP) Pulse Ox O2 Delivery O2 Flow Rate FiO2 09/01/24 09:00 60 20 120/63 (82) 100 09/01/24 05:00 97.6 97.6 08/31/24 20:14 Nasal Cannula* 2 28 Intake/Output Intake and Output 09/01/24 07:00 Intake Total 1120 ml Output Total 300 ml Balance 820 ml Intake Oral 1120 ml Output Urine Total 300 ml # Voids 3 # Bowel Movements 1 Medications Current Medications Medications Dose Ordered Sig/Consuelo Route Start Time Stop Time Status Last Admin Dose Admin Clonidine HCl 0.1 mg TID PO 08/31/24 06:00 09/01/24 06:22 0.1 MG Aspirin 81 mg DAILY PO 08/31/24 10:00 08/31/24 10:50 81 MG Atorvastatin Calcium 40 mg HS PO 08/31/24 22:00 08/31/24 22:16 40 MG Losartan Potassium 12.5 mg DAILY PO 08/31/24 10:00 Morphine Sulfate 2 mg Q30MP PRN IV 08/31/24 00:45 Acetaminophen 650 mg Q6HP PRN PO 08/31/24 00:45 Zolpidem Tartrate 5 mg QHSP PRN PO 08/31/24 00:45 Docusate Sodium 100 mg DAILY PO 08/31/24 10:00 09/01/24 10:58 100 MG Nitroglycerin 0.4 mg Q5MINP PRN SL 08/31/24 00:45 Ondansetron HCl 4 mg Q4HP PRN IV 08/31/24 00:45 Laboratory Results Laboratory Tests 08/31/24 10:30 Labs and/or images reviewed: Labs reviewed by me, Image(s) reviewed by me Assessment/Plan Assessment/Plan AFib with RVR: Eliquis Cardiology consult by Dr. Carbone appreciated History of AFib Coronary artery disease Hypertension: Metoprolol succinate ER 50 mg tablet b.i.d. CHF Lasix Gout: Allopurinol Hyperlipidemia: Lipitor Non ST-elevation [place] Hypothyroidism ; Synthroid MATTEO Sick sinus syndrome and symptomatic bradycardia: Cardiology Dr. Owen Carbone planning for pacemaker implantation Asthma: Med neb Time spent 65 minutes Condition guarded Patient is full code Plan discussed with: Patient Date of Service: Sep 01, 2024 Billing Provider: MANFRED ARTEAGA MD Common Visit Codes: [id number] CARE 30-74 MIN MANFRED ARTEAGA MD Sep 01, 2024 11:17
[2024-09-01] MEDS: ALLOPURINOL 100 MG TAB PO ONE (11:30)
[2024-09-01] MEDS: LEVOTHYROXINE SODIUM 100 MCG TAB PO ONE (11:30)
[2024-09-01] MEDS: FUROSEMIDE 20 MG TAB PO ONE (11:30)
[2024-09-01] MEDS: APIXABAN 2.5 MG TAB PO SCH (21:40)
--- NOTE | 2024-09-01 23:16 | DVHPN2 ---
Progress Note - Dictate Date Seen: Sep 01, 2024 Medical Necessity Reason Pt with a Central, PICC or Fol: No Subjective Patient was seen and evaluated in follow up. Patient c/o dizziness. Transthoracic echocardiogram reveals EF 55%. PPM insertion is scheduled for tomorrow 09/02/24. TSH 146.88. Telemetry reviewed. vital signs Vital Sign Date Time Temp Pulse Resp B/P (MAP) Pulse Ox O2 Delivery O2 Flow Rate FiO2 09/01/24 21:38 145/84 09/01/24 21:00 97.8 82 18 94 97.8 09/01/24 20:07 Room Air* 0 21 Total Intake and Output 08/31/24 08/31/24 09/01/24 15:00 23:00 07:00 Intake Total 400 ml 720 ml Output Total 300 ml Balance 100 ml 720 ml medications Current Medications Medications Dose Ordered Sig/Consuelo Route Start Time Stop Time Status Last Admin Dose Admin Clonidine HCl 0.1 mg TID PO 08/31/24 06:00 09/01/24 21:38 0.1 MG Aspirin 81 mg DAILY PO 08/31/24 10:00 08/31/24 10:50 81 MG Atorvastatin Calcium 40 mg HS PO 08/31/24 22:00 09/01/24 21:36 40 MG Losartan Potassium 12.5 mg DAILY PO 08/31/24 10:00 Morphine Sulfate 2 mg Q30MP PRN IV 08/31/24 00:45 Acetaminophen 650 mg Q6HP PRN PO 08/31/24 00:45 Zolpidem Tartrate 5 mg QHSP PRN PO 08/31/24 00:45 Docusate Sodium 100 mg DAILY PO 08/31/24 10:00 09/01/24 10:58 100 MG Nitroglycerin 0.4 mg Q5MINP PRN SL 08/31/24 00:45 Ondansetron HCl 4 mg Q4HP PRN IV 08/31/24 00:45 Allopurinol 300 mg DAILY PO 09/02/24 10:00 Patient Own Medication 2.5 mg DAILY PO 09/02/24 10:00 UNV Levothyroxine Sodium 100 mcg QAM@0600 PO 09/02/24 06:00 Furosemide 20 mg DAILY PO 09/02/24 10:00 Apixaban 2.5 mg DAILY PO 09/01/24 22:00 objective GENERAL: Alert and oriented x 3. No acute distress. EYES: PERRL, EOMI. Anicteric. HENT: Moist mucous membranes. LUNGS: Clear to auscultation bilaterally. CARDIOVASCULAR: Regular rate and rhythm. ABDOMEN: Soft, nontender and nondistended. EXTREMITIES: No edema. NEUROLOGIC: No focal neurological deficits. SKIN: Warm, dry. laboratory and microbiology Laboratory Tests 08/31/24 10:30 Test 08/31/24 10:30 Range/Units Serum Glucose 88 74-106 mg/dL Problem List Sick sinus syndrome. Symptomatic bradycardia. NSTEMI. Atrial flutter. History of atrial fibrillation (on Eliquis). Chronic HFpEF, NYHA class III. Severe mitral valve regurgitation. Hypertension. Dyslipidemia. Thyroid disease. Acute kidney injury. Assessment/Plan Continued all current supportive medical care. PPM insertion. Eliquis. Aspirin, Lipitor. Clonidine, Losartan. Diuretics with Lasix. Morphine for pain management. Additional plan as per the hospital course. Plan discussed with: Patient ABDULAZIZ LOWRY MD Sep 01, 2024 23:16
[2024-09-02] VITALS (7 sets, daily range): BP systolic 96–135; BP diastolic 59–84; PULSE 67–102; RESP 17–20; TEMP 97.2–98.1; O2SAT 97–100
[2024-09-02] MEDS: LEVOTHYROXINE SODIUM 100 MCG TAB PO SCH (05:50)
--- NOTE | 2024-09-02 06:56 | DVH ---
EXAM: XR Chest, 1 View CLINICAL INDICATION: preop TECHNIQUE: Frontal view of the chest. COMPARISON: None FINDINGS: LUNGS AND PLEURAL SPACES: See below. HEART: Cardiomegaly with mild congestion. MEDIASTINUM: Unremarkable. Normal mediastinal contour. BONES/JOINTS: Unremarkable. No acute fracture. OTHER FINDINGS: . . . IMPRESSION: Cardiomegaly with mild congestion.
[2024-09-02 07:02] LABS: INR 1.01 (0.9-1.15); Partial Thromboplastin Time 30.7 SEC (24.5-34.5); Prothrombin Time 10.7 sec (9.3-11.8)
[2024-09-02 07:06] LABS: Alkaline Phosphatase 78 U/L (46-116); Anion Gap 4 (5-15); BUN/Creatinine Ratio 15.7 (10.0-20.0); Bilirubin, Total 1.1 mg/dL (0.2-1.0); Blood Urea Nitrogen 21 mg/dL (9-23); Chloride 99 mmol/L (98-107); Glucose 76 mg/dL (74-106); Potassium 4.6 mmol/L (3.5-5.1); Sodium 136 mmol/L (136-145); Total Protein 5.9 g/dL (5.7-8.2)
[2024-09-02 07:17] LABS: Alanine Aminotransferase 68 U/L (7-40); Aspartate Aminotransferase 58 U/L (13-40); Calcium 10.6 mg/dL (8.7-10.4); Carbon Dioxide 33 mmol/L (20-31)
--- NOTE | 2024-09-02 09:07 | DVHPN2 ---
Reviewed: Care Plan, H&P, Labs, Medications, Previous Orders, Radiology Changes from previous H/P or p: No Changes Eyes: No Pain, No Vision change, No Conjunctivae inflammation, No Eyelid inflammation, No Other, No Redness ENT: No Ear pain, No Ear discharge, No Nose pain, No Nose discharge, No Nose congestion, No Mouth pain, No Mouth swelling, No Throat pain, No Throat swelling, No Other Cardiovascular: No Chest Pain; Palpitations; No Orthopnea, No Paroxysmal Noc. Dyspnea, No Edema, No Lt Headedness, No Other Respiratory: No Cough, No Dry, No Shortness of breath, No SOB with excertion, No Wheezing, No Hemoptysis, No Pleuritic Pain, No Sputum, No Other Gastrointestinal: No Nausea, No Vomiting, No Abdominal Pain, No Diarrhea, No Constipation, No Melena, No Hematochezia, No Other Genitourinary: No Dysuria, No Frequency, No Incontinence, No Hematuria, No Retention, No Other Musculoskeletal: No other, No neck pain, No shoulder pain, No arm pain, No back pain, No hand pain, No leg pain, No foot pain Skin: No Rash, No Lesions, No Jaundice, No Bruising, No Other Objective Vitals Vital Signs Date Time Temp Pulse Resp B/P (MAP) Pulse Ox O2 Delivery O2 Flow Rate FiO2 09/02/24 05:47 135/71 09/02/24 05:00 97.6 67 18 100 97.6 09/01/24 20:07 Room Air* 0 21 Intake/Output Intake and Output 09/02/24 07:00 Intake Total 1989 ml Balance 1990 ml Intake Oral 1990 ml Medications Current Medications Medications Dose Ordered Sig/Consuelo Route Start Time Stop Time Status Last Admin Dose Admin Clonidine HCl 0.1 mg TID PO 08/31/24 06:00 09/01/24 21:38 0.1 MG Aspirin 81 mg DAILY PO 08/31/24 10:00 08/31/24 10:50 81 MG Atorvastatin Calcium 40 mg HS PO 08/31/24 22:00 09/01/24 21:36 40 MG Losartan Potassium 12.5 mg DAILY PO 08/31/24 10:00 Morphine Sulfate 2 mg Q30MP PRN IV 08/31/24 00:45 Acetaminophen 650 mg Q6HP PRN PO 08/31/24 00:45 Zolpidem Tartrate 5 mg QHSP PRN PO 08/31/24 00:45 Docusate Sodium 100 mg DAILY PO 08/31/24 10:00 09/01/24 10:58 100 MG Nitroglycerin 0.4 mg Q5MINP PRN SL 08/31/24 00:45 Ondansetron HCl 4 mg Q4HP PRN IV 08/31/24 00:45 Allopurinol 300 mg DAILY PO 09/02/24 10:00 Patient Own Medication 2.5 mg DAILY PO 09/02/24 10:00 UNV Levothyroxine Sodium 100 mcg QAM@0600 PO 09/02/24 06:00 Furosemide 20 mg DAILY PO 09/02/24 10:00 Apixaban 2.5 mg DAILY PO 09/01/24 22:00 Laboratory Results Laboratory Tests 08/31/24 10:30 09/02/24 05:45 Chemistry Test 09/02/24 05:45 Albumin 4.0 g/dL (3.2-4.8) Calcium Level 10.6 mg/dL (8.7-10.4) H Total Protein 5.9 g/dL (5.7-8.2) Coagulation Test 09/02/24 05:45 Prothrombin Time 10.7 sec (9.3-11.8) Prothrombin Time INR 1.01 (0.9-1.15) Activated Partial Thromboplast Time 30.7 SEC (24.5-34.5) LFT Test 09/02/24 05:45 Alanine Aminotransferase (ALT) 68 U/L (7-40) H Alkaline Phosphatase 78 U/L (46-116) Aspartate Amino Transferase (AST) 58 U/L (13-40) H Total Bilirubin 1.1 mg/dL (0.2-1.0) H HgA1c, TSH Test 09/01/24 13:30 Thyroid Stimulating Hormone (TSH) 146.88 uIU/mL (0.55-4.78) H Labs and/or images reviewed: Labs reviewed by me, Image(s) reviewed by me Assessment/Plan Assessment/Plan AFib with RVR: Sheila Cardiology consult by Dr. Carbone appreciated History of AFib Coronary artery disease Hypertension: Metoprolol succinate ER 50 mg tablet b.i.d. CHF Lasix Gout: Allopurinol Hyperlipidemia: Lipitor Non ST-elevation [place] Hypothyroidism ; Synthroid MATTEO Sick sinus syndrome and symptomatic bradycardia: Cardiology Dr. Owen Carbone planning for pacemaker implantation, patient has not signed the consent for pacemaker and awaiting for her son to come to the bedside Asthma: Med neb Time spent 55 minutes Condition guarded Patient is full code Plan discussed with: Patient My Orders Orders - MANFRED ARTEAGA MD Procedure Category Date Status Time Allopurinol Tablet PHA 09/02/24 In Process (Zyloprim Tablet) 10:00 Levothyroxine Tablet PHA 09/02/24 In Process (Synthroid Tablet) 06:00 Furosemide Tablet PHA 09/02/24 In Process (Lasix Tablet) 10:00 Apixaban (Eliquis) PHA 09/01/24 In Process 22:00 Date of Service: Sep 02, 2024 Billing Provider: MANFRED ARTEAGA MD Common Visit Codes: [id number] INP/OBS CARE(HIGH) MANFRED ARTEAGA MD Sep 02, 2024 09:07
[2024-09-02] MEDS: ALLOPURINOL 100 MG TAB PO SCH (11:10)
[2024-09-02] MEDS: FUROSEMIDE 20 MG TAB PO SCH (11:10)
--- NOTE | 2024-09-02 23:30 | DVHPN2 ---
Progress Note - Dictate Date Seen: Sep 02, 2024 Medical Necessity Reason Pt with a Central, PICC or Fol: No Subjective Patient was seen and evaluated in follow up. Patient is on 3 LPM NC. Awaiting pacemaker implantation. The patient has not signed the consent for pacemaker, awaiting for her son to come to the bedside. CO2 33, Moisture Meter Operator 1.34. Telemetry reviewed. vital signs Vital Sign Date Time Temp Pulse Resp B/P (MAP) Pulse Ox O2 Delivery O2 Flow Rate FiO2 09/02/24 21:58 117/64 09/02/24 21:00 97.2 94 19 97 97.2 09/02/24 19:46 Nasal Cannula* 3 32 Total Intake and Output 09/01/24 09/01/24 09/02/24 15:00 23:00 07:00 Intake Total 1740 ml 250 ml Balance 1740 ml 250 ml medications Current Medications Medications Dose Ordered Sig/Consuelo Route Start Time Stop Time Status Last Admin Dose Admin Clonidine HCl 0.1 mg TID PO 08/31/24 06:00 09/02/24 13:39 0.1 MG Aspirin 81 mg DAILY PO 08/31/24 10:00 08/31/24 10:50 81 MG Atorvastatin Calcium 40 mg HS PO 08/31/24 22:00 09/02/24 21:56 40 MG Losartan Potassium 12.5 mg DAILY PO 08/31/24 10:00 Morphine Sulfate 2 mg Q30MP PRN IV 08/31/24 00:45 Acetaminophen 650 mg Q6HP PRN PO 08/31/24 00:45 Zolpidem Tartrate 5 mg QHSP PRN PO 08/31/24 00:45 Docusate Sodium 100 mg DAILY PO 08/31/24 10:00 09/02/24 11:10 100 MG Nitroglycerin 0.4 mg Q5MINP PRN SL 08/31/24 00:45 Ondansetron HCl 4 mg Q4HP PRN IV 08/31/24 00:45 Allopurinol 300 mg DAILY PO 09/02/24 10:00 09/02/24 11:10 300 MG Patient Own Medication 2.5 mg DAILY PO 09/02/24 10:00 UNV Levothyroxine Sodium 100 mcg QAM@0600 PO 09/02/24 06:00 Furosemide 20 mg DAILY PO 09/02/24 10:00 09/02/24 11:10 20 MG Apixaban 2.5 mg DAILY PO 09/01/24 22:00 objective GENERAL: Alert and oriented x 3. No acute distress. EYES: PERRL, EOMI. Anicteric. HENT: Moist mucous membranes. LUNGS: Clear to auscultation bilaterally. CARDIOVASCULAR: Regular rate and rhythm. ABDOMEN: Soft, nontender and nondistended. EXTREMITIES: No edema. NEUROLOGIC: No focal neurological deficits. SKIN: Warm, dry. laboratory and microbiology Laboratory Tests 09/02/24 05:45 08/31/24 10:30 Test 09/02/24 05:45 Range/Units Serum Glucose 76 74-106 mg/dL Problem List Sick sinus syndrome. Symptomatic bradycardia. NSTEMI. Atrial flutter. History of atrial fibrillation (on Eliquis). Chronic HFpEF, NYHA class III. Severe mitral valve regurgitation. Hypertension. Dyslipidemia. Thyroid disease. Acute kidney injury. Assessment/Plan Continued all current supportive medical care. PPM insertion. Eliquis. Aspirin, Lipitor. Clonidine, Losartan. Diuretics with Lasix. Morphine for pain management. Additional plan as per the hospital course. Plan discussed with: Patient ABDULAZIZ LOWRY MD Sep 02, 2024 23:30
[2024-09-03] VITALS (8 sets, daily range): BP systolic 100–144; BP diastolic 61–88; PULSE 81–116; RESP 17–19; TEMP 97.2–97.8; O2SAT 96–98
--- NOTE | 2024-09-03 09:20 | DVHPN2 ---
Reviewed: Care Plan, H&P, Labs, Medications, Previous Orders, Radiology Changes from previous H/P or p: No Changes Eyes: No Pain, No Vision change, No Conjunctivae inflammation, No Eyelid inflammation, No Other, No Redness ENT: No Ear pain, No Ear discharge, No Nose pain, No Nose discharge, No Nose congestion, No Mouth pain, No Mouth swelling, No Throat pain, No Throat swelling, No Other Cardiovascular: No Chest Pain; Palpitations; No Orthopnea, No Paroxysmal Noc. Dyspnea, No Edema, No Lt Headedness, No Other Respiratory: No Cough, No Dry, No Shortness of breath, No SOB with excertion, No Wheezing, No Hemoptysis, No Pleuritic Pain, No Sputum, No Other Gastrointestinal: No Nausea, No Vomiting, No Abdominal Pain, No Diarrhea, No Constipation, No Melena, No Hematochezia, No Other Genitourinary: No Dysuria, No Frequency, No Incontinence, No Hematuria, No Retention, No Other Musculoskeletal: No other, No neck pain, No shoulder pain, No arm pain, No back pain, No hand pain, No leg pain, No foot pain Skin: No Rash, No Lesions, No Jaundice, No Bruising, No Other Objective Vitals Vital Signs Date Time Temp Pulse Resp B/P (MAP) Pulse Ox O2 Delivery O2 Flow Rate FiO2 09/03/24 07:18 117/50 09/03/24 05:00 97.3 83 18 98 97.3 09/02/24 19:46 Nasal Cannula* 3 32 Intake/Output Intake and Output 09/03/24 07:00 Intake Total 1000 ml Balance 1000 ml Intake Oral 1000 ml # Voids 1 Medications Current Medications Medications Dose Ordered Sig/Consuelo Route Start Time Stop Time Status Last Admin Dose Admin Clonidine HCl 0.1 mg TID PO 08/31/24 06:00 09/03/24 06:05 0.1 MG Aspirin 81 mg DAILY PO 08/31/24 10:00 08/31/24 10:50 81 MG Atorvastatin Calcium 40 mg HS PO 08/31/24 22:00 09/02/24 21:56 40 MG Losartan Potassium 12.5 mg DAILY PO 08/31/24 10:00 Morphine Sulfate 2 mg Q30MP PRN IV 08/31/24 00:45 Acetaminophen 650 mg Q6HP PRN PO 08/31/24 00:45 Zolpidem Tartrate 5 mg QHSP PRN PO 08/31/24 00:45 Docusate Sodium 100 mg DAILY PO 08/31/24 10:00 09/02/24 11:10 100 MG Nitroglycerin 0.4 mg Q5MINP PRN SL 08/31/24 00:45 Ondansetron HCl 4 mg Q4HP PRN IV 08/31/24 00:45 Allopurinol 300 mg DAILY PO 09/02/24 10:00 09/02/24 11:10 300 MG Patient Own Medication 2.5 mg DAILY PO 09/02/24 10:00 UNV Levothyroxine Sodium 100 mcg QAM@0600 PO 09/02/24 06:00 09/03/24 06:05 100 MCG Furosemide 20 mg DAILY PO 09/02/24 10:00 09/02/24 11:10 20 MG Apixaban 2.5 mg DAILY PO 09/01/24 22:00 Laboratory Results Laboratory Tests 08/31/24 10:30 09/02/24 05:45 Labs and/or images reviewed: Labs reviewed by me, Image(s) reviewed by me Assessment/Plan Assessment/Plan AFib with RVR: Eliquis Cardiology consult by Dr. Carbone appreciated History of AFib Coronary artery disease Hypertension: Metoprolol succinate ER 50 mg tablet b.i.d. CHF Lasix Gout: Allopurinol Hyperlipidemia: Lipitor Non ST-elevation [place] Hypothyroidism ; Synthroid MATTEO Sick sinus syndrome and symptomatic bradycardia: Patient insisting Dr. Carbone to talk to her personally before inserting pacemaker, Dr. Carbone was informed Asthma: Med neb Time spent 55 minutes Condition guarded Patient is full code Plan discussed with: Patient My Orders Orders - MANFRED ARTEAGA MD Procedure Category Date Status Time Cardiac DIET 09/02/24 Transmitted Diet-2gna,Lofat,Lochol Lunch Date of Service: Sep 03, 2024 Billing Provider: MANFRED ARTEAGA MD Common Visit Codes: [id number] INP/OBS CARE(HIGH) MANFRED ARTEAGA MD Sep 03, 2024 09:20
--- NOTE | 2024-09-03 23:21 | DVHPN2 ---
Progress Note - Dictate Date Seen: Sep 03, 2024 Medical Necessity Reason Pt with a Central, PICC or Fol: No Subjective Patient was seen and evaluated in follow up. Patient is on 3 LPM NC. Awaiting [facility] consents to be signed at this time. Telemetry reviewed. vital signs Vital Sign Date Time Temp Pulse Resp B/P (MAP) Pulse Ox O2 Delivery O2 Flow Rate FiO2 09/03/24 09:00 97.8 91 17 101/67 (78) 97 97.8 09/03/24 08:00 Nasal Cannula* 3 32 Total Intake and Output 09/02/24 09/02/24 09/03/24 15:00 23:00 07:00 Intake Total 600 ml 400 ml Balance 600 ml 400 ml medications Current Medications Medications Dose Ordered Sig/Consuelo Route Start Time Stop Time Status Last Admin Dose Admin Clonidine HCl 0.1 mg TID PO 08/31/24 06:00 09/03/24 06:05 0.1 MG Aspirin 81 mg DAILY PO 08/31/24 10:00 08/31/24 10:50 81 MG Atorvastatin Calcium 40 mg HS PO 08/31/24 22:00 09/02/24 21:56 40 MG Losartan Potassium 12.5 mg DAILY PO 08/31/24 10:00 Morphine Sulfate 2 mg Q30MP PRN IV 08/31/24 00:45 Acetaminophen 650 mg Q6HP PRN PO 08/31/24 00:45 Zolpidem Tartrate 5 mg QHSP PRN PO 08/31/24 00:45 Docusate Sodium 100 mg DAILY PO 08/31/24 10:00 09/03/24 09:17 100 MG Nitroglycerin 0.4 mg Q5MINP PRN SL 08/31/24 00:45 Ondansetron HCl 4 mg Q4HP PRN IV 08/31/24 00:45 Allopurinol 300 mg DAILY PO 09/02/24 10:00 09/03/24 09:18 300 MG Patient Own Medication 2.5 mg DAILY PO 09/02/24 10:00 UNV Levothyroxine Sodium 100 mcg QAM@0600 PO 09/02/24 06:00 09/03/24 06:05 100 MCG Furosemide 20 mg DAILY PO 09/02/24 10:00 09/02/24 11:10 20 MG Apixaban 2.5 mg DAILY PO 09/01/24 22:00 objective GENERAL: Alert and oriented x 3. No acute distress. EYES: PERRL, EOMI. Anicteric. HENT: Moist mucous membranes. LUNGS: Clear to auscultation bilaterally. CARDIOVASCULAR: Regular rate and rhythm. ABDOMEN: Soft, nontender and nondistended. EXTREMITIES: No edema. NEUROLOGIC: No focal neurological deficits. SKIN: Warm, dry. laboratory and microbiology Laboratory Tests 09/02/24 05:45 08/31/24 10:30 Test 09/02/24 05:45 Range/Units Serum Glucose 76 74-106 mg/dL Problem List Sick sinus syndrome. Symptomatic bradycardia. NSTEMI. Atrial flutter. History of atrial fibrillation (on Eliquis). Chronic HFpEF, NYHA class III. Severe mitral valve regurgitation. Hypertension. Dyslipidemia. Thyroid disease. Acute kidney injury. Assessment/Plan Continued all current supportive medical care. PPM insertion. Eliquis. Aspirin, Lipitor. Clonidine, Losartan. Diuretics with Lasix. Morphine for pain management. Additional plan as per the hospital course. Plan discussed with: Patient ABDULAZIZ LOWRY MD Sep 03, 2024 13:02
[2024-09-04] VITALS (8 sets, daily range): BP systolic 90–152; BP diastolic 54–86; PULSE 76–113; RESP 16–18; TEMP 97.3–97.7; O2SAT 96–100
--- NOTE | 2024-09-04 08:27 | DVHPN2 ---
Reviewed: Care Plan, H&P, Labs, Medications, Previous Orders, Radiology Changes from previous H/P or p: No Changes Eyes: No Pain, No Vision change, No Conjunctivae inflammation, No Eyelid inflammation, No Other, No Redness ENT: No Ear pain, No Ear discharge, No Nose pain, No Nose discharge, No Nose congestion, No Mouth pain, No Mouth swelling, No Throat pain, No Throat swelling, No Other Cardiovascular: No Chest Pain; Palpitations; No Orthopnea, No Paroxysmal Noc. Dyspnea, No Edema, No Lt Headedness, No Other Respiratory: No Cough, No Dry, No Shortness of breath, No SOB with excertion, No Wheezing, No Hemoptysis, No Pleuritic Pain, No Sputum, No Other Gastrointestinal: No Nausea, No Vomiting, No Abdominal Pain, No Diarrhea, No Constipation, No Melena, No Hematochezia, No Other Genitourinary: No Dysuria, No Frequency, No Incontinence, No Hematuria, No Retention, No Other Musculoskeletal: No other, No neck pain, No shoulder pain, No arm pain, No back pain, No hand pain, No leg pain, No foot pain Skin: No Rash, No Lesions, No Jaundice, No Bruising, No Other Objective Vitals Vital Signs Date Time Temp Pulse Resp B/P (MAP) Pulse Ox O2 Delivery O2 Flow Rate FiO2 09/04/24 05:00 97.7 95 18 152/81 (104) 100 97.7 09/03/24 20:00 Room Air* 0 21 Intake/Output Intake and Output 09/04/24 07:00 Intake Total 955 ml Balance 955 ml Intake Oral 955 ml # Voids 5 # Bowel Movements 1 Medications Current Medications Medications Dose Ordered Sig/Consuelo Route Start Time Stop Time Status Last Admin Dose Admin Clonidine HCl 0.1 mg TID PO 08/31/24 06:00 09/03/24 06:05 0.1 MG Aspirin 81 mg DAILY PO 08/31/24 10:00 08/31/24 10:50 81 MG Atorvastatin Calcium 40 mg HS PO 08/31/24 22:00 09/03/24 21:54 40 MG Losartan Potassium 12.5 mg DAILY PO 08/31/24 10:00 Morphine Sulfate 2 mg Q30MP PRN IV 08/31/24 00:45 Acetaminophen 650 mg Q6HP PRN PO 08/31/24 00:45 Zolpidem Tartrate 5 mg QHSP PRN PO 08/31/24 00:45 Docusate Sodium 100 mg DAILY PO 08/31/24 10:00 09/03/24 09:17 100 MG Nitroglycerin 0.4 mg Q5MINP PRN SL 08/31/24 00:45 Ondansetron HCl 4 mg Q4HP PRN IV 08/31/24 00:45 Allopurinol 300 mg DAILY PO 09/02/24 10:00 09/03/24 09:18 300 MG Patient Own Medication 2.5 mg DAILY PO 09/02/24 10:00 UNV Levothyroxine Sodium 100 mcg QAM@0600 PO 09/02/24 06:00 09/04/24 05:37 100 MCG Furosemide 20 mg DAILY PO 09/02/24 10:00 09/02/24 11:10 20 MG Apixaban 2.5 mg DAILY PO 09/01/24 22:00 Laboratory Results Laboratory Tests 08/31/24 10:30 09/02/24 05:45 Labs and/or images reviewed: Labs reviewed by me, Image(s) reviewed by me Assessment/Plan Assessment/Plan AFib with RVR: Eliquis Cardiology consult by Dr. Carbone appreciated History of AFib Coronary artery disease Hypertension: Metoprolol succinate ER 50 mg tablet b.i.d. CHF Lasix Gout: Allopurinol Hyperlipidemia: Lipitor Non ST-elevation [place] Hypothyroidism ; Synthroid MATTEO Sick sinus syndrome and symptomatic bradycardia: Patient awaiting discussion with Dr. Carbone to make a final decision Asthma: Med neb Time spent 55 minutes Condition guarded Patient is full code RN Derick and RN Janet at bedside during discussion with the patient about pacemaker. Plan discussed with: Patient Date of Service: September 04, 2024 Billing Provider: MANFRED ARTEAGA MD Common Visit Codes: [id number] INP/OBS CARE(HIGH) MANFRED ARTEAGA MD September 04, 2024 08:27
[2024-09-04] MEDS ORDERED: METOPROLOL TARTRATE 1MG/1ML-5ML VIAL IV PRN (09:15)
[2024-09-04] MEDS ORDERED: METOPROLOL TARTRATE 1MG/1ML-5ML VIAL IV SCH (10:00)
[2024-09-04] MEDS: METOPROLOL TARTRATE 25 MG TAB PO SCH (10:35)
--- NOTE | 2024-09-04 11:38 | ECG ---
[facility] Test Date: 2024-09-04 Test Time: 10:52:10 Pat Name: MINI SALINAS Department: Respiratoy Room: 0246T A Gender: F Chemistry Quality Control Analyst: YOUNG : 1935 Requested By: ABDULAZIZ LOWRY Order Number: [id number] Reading MD: Greyson Claire Measurements Intervals [place] Rate: 102 P: 0 NV: 0 QRS: -58 QRSD: 131 T: 204 QT: 366 QTc: 477 Interpretive Statements Atrial fibrillation Ventricular premature complex RBBB and LAFB Abnrm T, consider ischemia, anterolateral lds Electronically Signed On 09-04-2024 13:07:48 PDT by Greyson Claire Please click the below link to view image of tracing.
--- NOTE | 2024-09-04 23:27 | DVHPN2 ---
Progress Note - Dictate Date Seen: September 04, 2024 Medical Necessity Reason Pt with a Central, PICC or Fol: No Subjective Patient was seen and evaluated in follow up. Patient is on 3 LPM NC. No indication for PPM. Patient to follow up with cardiology outpatient. TSH 119.82. Telemetry reviewed. vital signs Vital Sign Date Time Temp Pulse Resp B/P (MAP) Pulse Ox O2 Delivery O2 Flow Rate FiO2 09/04/24 10:37 150/72 09/04/24 10:35 100 09/04/24 09:00 97.3 17 99 97.3 09/04/24 08:00 Nasal Cannula* 3 32 Total Intake and Output 09/03/24 09/03/24 09/04/24 15:00 23:00 07:00 Intake Total 625 ml 330 ml Balance 625 ml 330 ml medications Current Medications Medications Dose Ordered Sig/Consuelo Route Start Time Stop Time Status Last Admin Dose Admin Clonidine HCl 0.1 mg TID PO 08/31/24 06:00 09/03/24 06:05 0.1 MG Aspirin 81 mg DAILY PO 08/31/24 10:00 09/04/24 10:36 81 MG Atorvastatin Calcium 40 mg HS PO 08/31/24 22:00 09/03/24 21:54 40 MG Losartan Potassium 12.5 mg DAILY PO 08/31/24 10:00 09/04/24 10:36 12.5 MG Morphine Sulfate 2 mg Q30MP PRN IV 08/31/24 00:45 Acetaminophen 650 mg Q6HP PRN PO 08/31/24 00:45 Zolpidem Tartrate 5 mg QHSP PRN PO 08/31/24 00:45 Docusate Sodium 100 mg DAILY PO 08/31/24 10:00 09/04/24 10:36 100 MG Nitroglycerin 0.4 mg Q5MINP PRN SL 08/31/24 00:45 Ondansetron HCl 4 mg Q4HP PRN IV 08/31/24 00:45 Allopurinol 300 mg DAILY PO 09/02/24 10:00 09/04/24 10:36 300 MG Patient Own Medication 2.5 mg DAILY PO 09/02/24 10:00 UNV Levothyroxine Sodium 100 mcg QAM@0600 PO 09/02/24 06:00 09/04/24 05:37 100 MCG Furosemide 20 mg DAILY PO 09/02/24 10:00 09/04/24 10:37 20 MG Apixaban 2.5 mg DAILY PO 09/01/24 22:00 09/04/24 10:36 2.5 MG Metoprolol Tartrate 12.5 mg TID PO 09/04/24 08:45 09/04/24 10:35 12.5 MG Metoprolol Tartrate 2.5 mg Q4HP PRN IV 09/04/24 09:15 objective GENERAL: Alert and oriented x 3. No acute distress. EYES: PERRL, EOMI. Anicteric. HENT: Moist mucous membranes. LUNGS: Clear to auscultation bilaterally. CARDIOVASCULAR: Regular rate and rhythm. ABDOMEN: Soft, nontender and nondistended. EXTREMITIES: No edema. NEUROLOGIC: No focal neurological deficits. SKIN: Warm, dry. laboratory and microbiology Laboratory Tests 09/02/24 05:45 08/31/24 10:30 Test 09/02/24 05:45 Range/Units Serum Glucose 76 74-106 mg/dL Problem List Sick sinus syndrome. Symptomatic bradycardia. NSTEMI. Atrial flutter. History of atrial fibrillation (on Eliquis). Chronic HFpEF, NYHA class III. Severe mitral valve regurgitation. Hypertension. Dyslipidemia. Thyroid disease. Acute kidney injury. Assessment/Plan Continued all current supportive medical care. Eliquis. Aspirin, Lipitor. Clonidine, Losartan. Diuretics with Lasix. Morphine for pain management. Additional plan as per the hospital course. Dietary Evaluation Review Comments: 1. Continue Cardiac diet as tolerated 2. Encourage continued good oral intakes >75% of meals Expected Outcomes/Goals: Maintain adequate nutriton. Plan discussed with: Patient ABDULAZIZ LOWRY MD September 04, 2024 12:28
[2024-09-05 01:00] VITALS: BP 95/57; PULSE 76; RESP 16; TEMP 97.5; O2SAT 97
[2024-09-05 08:00] VITALS: PULSE 75; PULSE 76; RESP 17; O2SAT 93
[2024-09-05] MEDS ORDERED: LEVO-849 PO (08:23)
--- NOTE | 2024-09-05 08:25 | DVHPN2 ---
Reviewed: Care Plan, H&P, Labs, Medications, Previous Orders, Radiology Changes from previous H/P or p: No Changes Eyes: No Pain, No Vision change, No Conjunctivae inflammation, No Eyelid inflammation, No Other, No Redness ENT: No Ear pain, No Ear discharge, No Nose pain, No Nose discharge, No Nose congestion, No Mouth pain, No Mouth swelling, No Throat pain, No Throat swelling, No Other Cardiovascular: No Chest Pain; Palpitations; No Orthopnea, No Paroxysmal Noc. Dyspnea, No Edema, No Lt Headedness, No Other Respiratory: No Cough, No Dry, No Shortness of breath, No SOB with excertion, No Wheezing, No Hemoptysis, No Pleuritic Pain, No Sputum, No Other Gastrointestinal: No Nausea, No Vomiting, No Abdominal Pain, No Diarrhea, No Constipation, No Melena, No Hematochezia, No Other Genitourinary: No Dysuria, No Frequency, No Incontinence, No Hematuria, No Retention, No Other Musculoskeletal: No other, No neck pain, No shoulder pain, No arm pain, No back pain, No hand pain, No leg pain, No foot pain Skin: No Rash, No Lesions, No Jaundice, No Bruising, No Other Objective Vitals Vital Signs Date Time Temp Pulse Resp B/P (MAP) Pulse Ox O2 Delivery O2 Flow Rate FiO2 09/05/24 08:14 88 126/62 09/05/24 01:00 97.5 16 97 97.5 09/04/24 20:00 Nasal Cannula* 3 32 Intake/Output Intake and Output 09/05/24 07:00 Intake Total 980 ml Balance 980 ml Intake Oral 980 ml # Voids 3 # Bowel Movements 2 Medications Current Medications Medications Dose Ordered Sig/Consuelo Route Start Time Stop Time Status Last Admin Dose Admin Clonidine HCl 0.1 mg TID PO 08/31/24 06:00 09/05/24 06:43 0.1 MG Aspirin 81 mg DAILY PO 08/31/24 10:00 09/04/24 10:36 81 MG Atorvastatin Calcium 40 mg HS PO 08/31/24 22:00 09/04/24 22:39 40 MG Losartan Potassium 12.5 mg DAILY PO 08/31/24 10:00 09/04/24 10:36 12.5 MG Morphine Sulfate 2 mg Q30MP PRN IV 08/31/24 00:45 Acetaminophen 650 mg Q6HP PRN PO 08/31/24 00:45 Zolpidem Tartrate 5 mg QHSP PRN PO 08/31/24 00:45 Docusate Sodium 100 mg DAILY PO 08/31/24 10:00 09/04/24 10:36 100 MG Nitroglycerin 0.4 mg Q5MINP PRN SL 08/31/24 00:45 Ondansetron HCl 4 mg Q4HP PRN IV 08/31/24 00:45 Allopurinol 300 mg DAILY PO 09/02/24 10:00 09/04/24 10:36 300 MG Patient Own Medication 2.5 mg DAILY PO 09/02/24 10:00 UNV Levothyroxine Sodium 100 mcg QAM@0600 PO 09/02/24 06:00 09/05/24 06:43 100 MCG Furosemide 20 mg DAILY PO 09/02/24 10:00 09/04/24 10:37 20 MG Apixaban 2.5 mg DAILY PO 09/01/24 22:00 09/04/24 10:36 2.5 MG Metoprolol Tartrate 12.5 mg TID PO 09/04/24 08:45 09/05/24 06:43 12.5 MG Metoprolol Tartrate 2.5 mg Q4HP PRN IV 09/04/24 09:15 Laboratory Results Laboratory Tests 08/31/24 10:30 09/02/24 05:45 HgA1c, TSH Test 09/04/24 11:02 Thyroid Stimulating Hormone (TSH) 119.82 uIU/mL (0.55-4.78) H Labs and/or images reviewed: Labs reviewed by me, Image(s) reviewed by me Assessment/Plan Assessment/Plan AFib with RVR: Elisuadis Cardiology consult by Dr. Carbone appreciated Dr. Carbone discussed with the patient and her son and advised the patient does not need pacemaker as an inpatient and he will evaluate her as an outpatient for the need for pacemaker. Cleared for discharge by History of AFib Coronary artery disease Hypertension: Metoprolol succinate ER 50 mg tablet b.i.d. CHF Lasix Gout: Allopurinol Hyperlipidemia: Lipitor Non ST-elevation [place] Hypothyroidism ; Synthroid MATTEO Sick sinus syndrome and symptomatic bradycardia: Continue metoprolol succinate, outpatient pacemaker Asthma: Plan discussed with: Patient Date of Service: September 05, 2024 Billing Provider: MANFRED ARTEAGA MD Common Visit Codes: [id number] INP/OBS CARE(HIGH) MANFRED ARTEAGA MD September 05, 2024 08:25
[2024-09-05 08:29] VITALS: BP 126/62; PULSE 88; RESP 20; TEMP 97.6; O2SAT 100
--- NOTE | 2024-09-05 08:30 | DVHDS2 ---
Discharge Summary Date of Admission Aug 31, 2024 at 00:41 Date of Discharge: September 05, 2024 Admitting Diagnosis Dizziness Wounds: None Labs/Diagnostic Data: Laboratory Results Test 09/04/24 11:02 09/02/24 05:45 08/31/24 10:30 Thyroid Stimulating Hormone (TSH) 119.82 uIU/mL (0.55-4.78) Prothrombin Time 10.7 sec (9.3-11.8) Prothrombin Time INR 1.01 (0.9-1.15) Activated Partial Thromboplast Time 30.7 SEC (24.5-34.5) Sodium Level 136 mmol/L (136-145) Potassium Level 4.6 mmol/L (3.5-5.1) Chloride Level 99 mmol/L (98-107) Carbon Dioxide Level 33 mmol/L (20-31) Anion Gap 4 (5-15) Blood Urea Nitrogen 21 mg/dL (9-23) Creatinine 1.34 mg/dL (0.550-1.02) Glomerular Filtration Rate Calc 39 mL/min (>90) BUN/Creatinine Ratio 15.7 (10.0-20.0) Serum Glucose 76 mg/dL (74-106) Calcium Level 10.6 mg/dL (8.7-10.4) Total Bilirubin 1.1 mg/dL (0.2-1.0) Aspartate Amino Transferase (AST) 58 U/L (13-40) Alanine Aminotransferase (ALT) 68 U/L (7-40) Alkaline Phosphatase 78 U/L (46-116) Total Protein 5.9 g/dL (5.7-8.2) Albumin 4.0 g/dL (3.2-4.8) White Blood Count 6.9 10^3/uL (4.4-10.8) Red Blood Count 4.68 10^6/uL (4.0-5.20) Hemoglobin 15.5 g/dL (12.2-16.2) Hematocrit 46.4 % (36.0-46.0) Mean Corpuscular Volume 99.3 fL (80.0-100.0) Mean Corpuscular Hemoglobin 33.2 pg (28.0-32.0) Mean Corpuscular Hemoglobin Concent 33.4 g/dL (32.0-36.0) Red Cell Distribution Width 15.0 % (11.8-14.3) Platelet Count 165 10^3/uL (140-450) Mean Platelet Volume 8.0 fL (6.9-10.8) Neutrophils (%) (Auto) 73.9 % (37.0-80.0) Lymphocytes (%) (Auto) 16.5 % (10.0-50.0) Monocytes (%) (Auto) 5.5 % (0.0-12.0) Eosinophils (%) (Auto) 3.1 % (0.0-7.0) Basophils (%) (Auto) 1.0 % (0.0-2.0) Neutrophils # (Auto) 5.1 10 ^3/uL (1.6-8.6) Lymphocytes # (Auto) 1.1 10 ^3/uL (0.4-5.4) Monocytes # (Auto) 0.4 10 ^3/uL (0-1.3) Eosinophils # (Auto) 0.2 10 ^3/uL (0-0.8) Basophils # (Auto) 0.1 10 ^3/uL (0-0.2) Nucleated Red Blood Cells 0.1 % Troponin I High Sensitivity 102 ng/L (</=34) Other Laboratory Tests 09/02/24 05:45 08/31/24 10:30 Brief Hx & Hospital Course: 88-year-old female with a history of hypertension CHF gout hypercholesterolemia hypothyroidism AFib with RVR on Eliquis and metoprolol succinate at home came in complaining of dizziness. Patient was found to have AFib with RVR treated with the metoprolol Eliquis cardiology consult by Dr. Carbone. Patient is felt to have sick sinus syndrome with a bradycardia and tachycardia. Dr. Carbone was consulted and advised possible pacemaker implantation he discussed with the patient and the son and felt that could be done as an outpatient. Cleared for discharge by Dr. Carbone vital signs are stable patient is alert awake oriented x3 and ambulating at the time of discharge discharged home reviewed all the home medications Synthroid transmitted to the pharmacy per patient's request. she will continue metoprolol and Eliquis and follow up with the primary Dr and beauty consultant for consideration for pacemaker. RN Ty bedside during discussion with the patient about discharge plan. Consults/Reason for consult Cardiology Dr. Carbone Operations or Procedures Echocardiogram Condition at Discharge: Fair Final Diagnosis/Problems List AFib with RVR: Eliquis Cardiology consult by Dr. Carbone appreciated Dr. Carbone discussed with the patient and her son and advised the patient does not need pacemaker as an inpatient and he will evaluate her as an outpatient for the need for pacemaker. Cleared for discharge by History of AFib Coronary artery disease Hypertension: Metoprolol succinate ER 50 mg tablet b.i.d. CHF Lasix Gout: Allopurinol Hyperlipidemia: Lipitor Non ST-elevation [place] Hypothyroidism ; Synthroid MATTEO Sick sinus syndrome and symptomatic bradycardia: Continue metoprolol succinate, outpatient pacemaker Asthma: Discharge Disposition: Home Discharge Instruct/Medications Diet: Cardiac 2g Na,low cholest Activity: Light activity Follow Up/Referral: Follow up with the beauty consultant Dr. Owen Carbone in one week for consideration for pacemaker Resume all previous home medication Medications: Synthroid transmitted to pharmacy per patient's request Reviewed all other home meds 39 (Time taken for discharge summary 39 minutes) Discharge Statement: "Patient was advised to return to the ER or call 911 if any headaches, dizziness, shortness of breath, chest pain, abdominal pain, bleeding, fevers, or worsening of medical condition. Patient was counseled about treatment plan, medications, possible side effects, patientverbalized understanding. All questions were answered to the best of my ability. This discharge took greater then 30 minutes in planning, reviewing documentation, counseling the patient, and discussing with other team members." ASSESSMENT ASSESSMENT Hospital Course Marginally improved Assessment AFib with RVR: Eliquis Cardiology consult by Dr. Carbone appreciated Dr. Carbone discussed with the patient and her son and advised the patient does not need pacemaker as an inpatient and he will evaluate her as an outpatient for the need for pacemaker. Cleared for discharge by History of AFib Coronary artery disease Hypertension: Metoprolol succinate ER 50 mg tablet b.i.d. CHF Lasix Gout: Allopurinol Hyperlipidemia: Lipitor Non ST-elevation [place] Hypothyroidism ; Synthroid MATTEO Sick sinus syndrome and symptomatic bradycardia: Continue metoprolol succinate, outpatient pacemaker Asthma: Date of Service: September 05, 2024 Billing Provider: MANFRED ARTEAGA MD Common Visit Codes: [id number] DISCH DAY >30min MANFRED ARTEAGA MD September 05, 2024 08:30
[2024-09-05 10:13] VITALS: BP 90/52; PULSE 68; RESP 16; O2SAT 93
[2024-09-05 10:14] VITALS: O2SAT 93
[2024-09-05 11:09] VITALS: BP 90/53; PULSE 66; RESP 16; TEMP 97.8; O2SAT 93
--- NOTE | 2024-09-05 18:52 | DVHPN2 ---
Progress Note - Dictate Date Seen: September 05, 2024 Medical Necessity Reason Pt with a Central, PICC or Fol: No Subjective Patient was seen and evaluated in follow up. Patient has no new complaints at this time. Patient denies any cardiac symptoms. Patient is cardiac stable for discharge. Telemetry reviewed. vital signs Vital Sign Date Time Temp Pulse Resp B/P (MAP) Pulse Ox O2 Delivery O2 Flow Rate FiO2 09/05/24 11:09 97.8 66 16 93 09/05/24 10:14 Room Air* 0 21 09/05/24 10:13 90/52 (65) Total Intake and Output 09/04/24 09/04/24 09/05/24 15:00 23:00 07:00 Intake Total 980 ml Balance 980 ml medications Current Medications Medications Dose Ordered Sig/Consuelo Route Start Time Stop Time Status Last Admin Dose Admin Clonidine HCl 0.1 mg TID PO 08/31/24 06:00 09/05/24 06:43 0.1 MG Aspirin 81 mg DAILY PO 08/31/24 10:00 09/05/24 09:19 81 MG Atorvastatin Calcium 40 mg HS PO 08/31/24 22:00 09/04/24 22:39 40 MG Losartan Potassium 12.5 mg DAILY PO 08/31/24 10:00 09/05/24 09:21 12.5 MG Morphine Sulfate 2 mg Q30MP PRN IV 08/31/24 00:45 Acetaminophen 650 mg Q6HP PRN PO 08/31/24 00:45 Zolpidem Tartrate 5 mg QHSP PRN PO 08/31/24 00:45 Docusate Sodium 100 mg DAILY PO 08/31/24 10:00 09/05/24 09:20 100 MG Nitroglycerin 0.4 mg Q5MINP PRN SL 08/31/24 00:45 Ondansetron HCl 4 mg Q4HP PRN IV 08/31/24 00:45 Allopurinol 300 mg DAILY PO 09/02/24 10:00 09/05/24 09:20 300 MG Patient Own Medication 2.5 mg DAILY PO 09/02/24 10:00 UNV Levothyroxine Sodium 100 mcg QAM@0600 PO 09/02/24 06:00 09/05/24 06:43 100 MCG Furosemide 20 mg DAILY PO 09/02/24 10:00 09/04/24 10:37 20 MG Apixaban 2.5 mg DAILY PO 09/01/24 22:00 09/05/24 09:20 2.5 MG Metoprolol Tartrate 12.5 mg TID PO 09/04/24 08:45 09/05/24 06:43 12.5 MG Metoprolol Tartrate 2.5 mg Q4HP PRN IV 09/04/24 09:15 objective GENERAL: Alert and oriented x 3. No acute distress. EYES: PERRL, EOMI. Anicteric. HENT: Moist mucous membranes. LUNGS: Clear to auscultation bilaterally. CARDIOVASCULAR: Regular rate and rhythm. ABDOMEN: Soft, nontender and nondistended. EXTREMITIES: No edema. NEUROLOGIC: No focal neurological deficits. SKIN: Warm, dry. laboratory and microbiology Laboratory Tests 09/02/24 05:45 08/31/24 10:30 Test 09/02/24 05:45 Range/Units Serum Glucose 76 74-106 mg/dL Problem List Sick sinus syndrome. Symptomatic bradycardia. NSTEMI. Atrial flutter. History of atrial fibrillation (on Eliquis). Chronic HFpEF, NYHA class III. Severe mitral valve regurgitation. Hypertension. Dyslipidemia. Thyroid disease. Acute kidney injury. Assessment/Plan Continued all current supportive medical care. Eliquis. Aspirin, Lipitor. Clonidine, Losartan. Diuretics with Lasix. Morphine for pain management. Additional plan as per the hospital course. Dietary Evaluation Review Comments: 1. Continue Cardiac diet as tolerated 2. Encourage continued good oral intakes >75% of meals Expected Outcomes/Goals: Maintain adequate nutriton. Plan discussed with: Patient ABDULAZIZ LOWRY MD September 05, 2024 12:17
== END 2024-09-05 12:00 | disposition home or self-care (01) | DRG 281 ==
LOC: EDBD 22:33 → ER 22:33 → TELE-EAST 08-31 00:30 → OVERFLOW 08-31 00:41 → TELE-EAST 08-31 02:51
PROVIDERS: ADMIT Family Medicine; ATTEND Family Medicine
DX: I21.4 Non-ST elevation (NSTEMI) myocardial infarction (principal); E87.1 Hypo-osmolality and hyponatremia; I48.92 Unspecified atrial flutter; N17.9 Acute kidney failure, unspecified; I50.32 Chronic diastolic (congestive) heart failure; E07.9 Disorder of thyroid, unspecified; I11.0 Hypertensive heart disease with heart failure; I49.5 Sick sinus syndrome; I34.0 Nonrheumatic mitral (valve) insufficiency; I25.10 Atherosclerotic heart disease of native coronary artery without angina pectoris; E03.9 Hypothyroidism, unspecified; R00.1 Bradycardia, unspecified; I48.91 Unspecified atrial fibrillation; M10.9 Gout, unspecified; Z96.642 Presence of left artificial hip joint; E78.00 Pure hypercholesterolemia, unspecified; J45.909 Unspecified asthma, uncomplicated; Z79.01 Long term (current) use of anticoagulants
CPT/HCPCS: 36415; 71045; 80048; 80053; 84443; 84484; 85025; 85610; 85730; 86850; 86900; 86901; 93005; 93306; 99291; G0378